=== PATIENT | male | born 1945 | race Caucasian/White ===

== ENCOUNTER 2020-10-27 18:11 | Emergency (ER) | payer OTHER, MEDICARE, SELFPAY ==
[2020-10-27 18:33] VITALS: BP 125/90; PULSE 64; RESP 18; TEMP 36.8; O2SAT 95; BMI 31.2
[2020-10-27] MEDS: Tetracaine HCl/PF 0.5% Oph Sol 4 ML DROPS 1 DROP EYE-BOTH (18:42)
[2020-10-27] MEDS: Fluorescein Sodium STRIP 1 STRIP EYE-BOTH (18:42)
--- NOTE | 2020-10-27 19:14 | ED.EYEPROB ---
HPI - Eye Problem General Chief complaint: Eye Problems Stated complaint: SOMETHING IN EYE Time Seen by Provider: 10/27/20 18:38 Source: patient Mode of arrival: ambulatory Limitations: no limitations History of Present Illness HPI Narrative: Patient tells me yesterday he was mowing his lawn. He had sunglasses on but felt something fly up into his eye. Since then he has had some irritation and redness to the left eye. He is concerned they may be a foreign body in his eye. No vision changes. Related Data Allergies Allergy/AdvReac Type Severity Reaction Status Date / Time Sulfa (Sulfonamide Allergy Unknown UNKNOWN Unverified 12/08/19 15:33 Antibiotics) Review of Systems Review of Systems: Yes all other systems are reviewed and are negative Constitutional: Constitutional: Reports no additional constitutional complaints, Denies body ache(s), Denies chills, Denies fever(s), Denies headache(s) and Denies weakness Eyes: Eyes: Reports no additional eye complaints, Denies change in vision, Denies eye discharge, Reports irritation, Denies eye pain and Denies photophobia Comments: Redness ENT: Reports system reviewed and no additional complaints, except as documented, Denies dizziness, Denies headache(s), Denies nasal congestion, Denies nasal discharge and Denies neck pain Cardiovascular: Cardiovascular: Reports no additional cardiovascular complaints, Denies chest pain, Denies leg edema and Denies dyspnea Respiratory: Respiratory: Reports no additional respiratory complaints, Denies cough and Denies dyspnea Gastrointestinal: Gastrointestinal: Reports no additional gastrointestinal complaints, Denies abdominal pain, Denies diarrhea, Denies nausea and Denies vomiting Genitourinary: Genitourinary: Denies urinary incontinence Musculoskeletal: Musculoskeletal: Reports no additional musculoskeletal complaints, Denies back pain, Denies arthralgias, Denies joint swelling, Denies neck pain, Denies numbness and Denies tingling Integumentary/Breasts: Skin/Breast: Reports system reviewed and no additional complaints, except as docu and Denies rash Neurologic: Reports system reviewed and no additional complaints, except as documented, Denies Abnormal speech present, Denies dizziness, Denies headache(s), Denies numbness, Denies tingling and Denies weakness [facility] Past Medical History Attestation statement: The following information was validated with the patient. Source: old records reviewed and nursing notes reviewed Medical History CAD (coronary artery disease) Diabetes HLD (hyperlipidemia) HTN (hypertension) Social History Social History Advance Directives: No Physical Exam Vital Signs: Vital Signs: Last Vital Signs Temp 98.2 F 10/27/20 18:33 Pulse 64 10/27/20 18:33 Resp 18 10/27/20 18:33 BP 125/90 H 10/27/20 18:33 Pulse Ox 95 10/27/20 18:33 Body Mass Index 31.2 Const: General: cooperative, healthy appearing, comfortable and no acute distress Orientation/consciousness: patient oriented x3 Limitations: no limitations HENMT: Head: Yes normal to inspection Ears: hearing grossly normal bilaterally General nose exam: Normal external nose present Face and sinus: Yes normal facial exam Mouth: Normal oral and palatal mucosa present Throat: Yes posterior oropharynx normal Eyes: Other: IOP right 12, left 11 General: appearance normal, both eyes and all related structures Visual Nash: normal visual nash by confrontation Alignment and Position: alignment normal Periorbital: periorbital findings normal Eyelids: Yes eyelids normal and Yes other (To the left upper eyelid there is a small foreign body internally) Conjunctivae: conjunctivae normal Sclerae: sclerae normal Corneas: corneas normal and fluorescein used (No corneal abrasion or foreign body) Pupils: Equal, round and reactive pupils present EOM: EOMs intact bilaterally Direct Ophthalmoscopy: normal light reflex, no photophobia, fundi normal bilaterally, anterior chamber normal and No photophobia Neck: Neck: Yes normal visual inspection Chest: Chest palpation & inspection: normal inspection of the chest Resp: Effort & Inspection: normal respiratory effort Auscultation: clear to auscultation bilaterally Cardio: Rate: regular rate Rhythm: regular rhythm Peripheral pulses: Peripheral pulses 2+ throughout GI: Inspection: Yes normal to inspection Palpation (GI): Soft to palpation and nontender Auscultation: normal bowel sounds Back/Spine/Pelvis: Thoracic/Lumbar Spine: thoracic and lumbar spine normal to inspection Skin: General skin exam: no rashes or lesions noted Neuro: General: patient oriented x3, no focal motor deficits and normal sensation to monofilament Cranial nerves: Yes Equal, round and reactive pupils present Cognition (Neuro): normal cognition Speech: No Abnormal speech present Gait exam (Neuro): Normal gait present Motor exam (neuro): 5/5 motor strength present throughout Extrem: General: Yes normal to inspection Course Course Course Narrative: Foreign body removed from the left upper inner eyelid with a Q-tip and 18 gauge needle. No corneal abrasion or foreign body noted. No visual changes. Reviewed worrisome signs and symptoms of when to return to the emergency department. Comfortable discharge home. MDM - Eye Problem Medical Records Attestation: I reviewed the patient's medical records. Lab Data Attestation: I reviewed the patient's lab results. Discharge Plan Discharge Clinical Impression: Foreign body of eyelid, left Patient Disposition: Home, Self-Care Instructions: Eye Foreign Body (ED) Referrals: Timothy Cloud MD [Primary Care Provider] - 2 days Interventions: ED Discharge Assessment Last Done: 10/27/20 19:15
== END 2020-10-27 19:16 | disposition home or self-care (01) ==
PROVIDERS: Emergency Provider Internal Medicine; PCP Internal Medicine
DX: T15.12XA Foreign body in conjunctival sac, left eye, initial encounter (principal); X58.XXXA Exposure to other specified factors, initial encounter; Y93.H2 Activity, gardening and landscaping; Y92.096 Garden or yard of other non-institutional residence as the place of occurrence of the external cause; Y99.9 Unspecified external cause status
CPT/HCPCS: 65205; 99283

== ENCOUNTER 2022-11-10 15:01 | Outpatient (REF) | payer MEDICARE, SELFPAY ==
[2022-11-10 18:39] LABS: Thyroid Stimulating Hormone 1.35 uIU/mL (0.32-4.0)
[2022-11-10 18:47] LABS: Vitamin B12 1492 pg/mL (200-900)
[2022-11-16 09:49] LABS: Testosterone, Total 152 ng/dL (250-1100)
== END 2022-11-10 15:02 | disposition home or self-care (01) ==
LOC: HO.MANLDS 15:01
PROVIDERS: Visit Provider Internal Medicine
DX: R53.83 Other fatigue (principal)
CPT/HCPCS: 36415; 82306; 82607; 84403; 84443

== ENCOUNTER 2023-01-27 12:03 | Outpatient (REF) | payer MEDICARE, SELFPAY ==
[2023-01-27 13:46] LABS: Estimated Average Glucose 131 mg/dL; Hemoglobin A1c % 6.2 % (<6.0)
[2023-01-31 23:03] LABS: Testosterone, Total 158 ng/dL (250-1100)
== END 2023-01-27 12:04 | disposition home or self-care (01) ==
LOC: HO.MANLDS 12:03
PROVIDERS: Visit Provider Internal Medicine
DX: R89.1 Abnormal level of hormones in specimens from other organs, systems and tissues (principal); E11.9 Type 2 diabetes mellitus without complications
CPT/HCPCS: 36415; 83036; 84403

== ENCOUNTER 2023-06-03 13:59 | Emergency (ER) | payer MEDICARE, SELFPAY ==
--- NOTE | ~2023-06-03 | XR_ITS ---
EXAMINATION: XR CHEST CLINICAL INFORMATION: Pedal edema COMPARISON: Chest x-ray February 10, 2011 TECHNIQUE: 2 views of the chest were obtained. FINDINGS: No pulmonary vascular congestion. Lungs are normally aerated. No pleural effusion. Cardiac and mediastinal contours are normal. The heart size is normal. Multilevel degenerative spondylosis spine. XR/XR chest 2V IMPRESSION: Unremarkable examination.
[2023-06-03 14:39] VITALS: BP 149/84; PULSE 60; RESP 16; TEMP 36.8; O2SAT 93; BMI 31.6
--- NOTE | 2023-06-03 14:43 | ECG_ITS ---
Test Reason : EDEMA Blood Pressure : / mmHG Vent. Rate : 058 BPM Atrial Rate : 058 BPM P-R Int : 224 ms QRS Dur : 136 ms QT Int : 408 ms P-R-T Axes : 008 -19 152 degrees QTc Int : 400 ms Sinus bradycardia with 1st degree A-V block Left bundle branch block Abnormal ECG When compared with ECG of 10-FEB-2011 16:53, Premature ventricular complexes are no longer Present [place] interval has increased Left bundle branch block is now Present Referred By: Paddy Chaney Electronically Signed By:ISAURO KERR MD
--- NOTE | 2023-06-03 14:45 | ED_ITS ---
HPI - Extremity Problem General Chief complaint: Extremity Injury, Upper Stated complaint: Swollen R Elbow No Injury Time Seen by Provider: 06/03/23 16:02 Source: patient and family (patient's ) Mode of arrival: ambulatory Limitations: no limitations History of Present Illness HPI Narrative: Patient is a 78 year old assigned male at with a history of CAD, DM, and HTN presenting to the emergency department today with bruising of the right elbow. Patient states that his and son noticed bruising to his right elbow and recommended he come in to the hospital. Patient states that his legs also seem to be swollen sometimes. Patient denies any dizziness, lightheadedness, abdominal pain, nausea, vomiting, fever, chills, blurry vision, double vision, loss of vision, chest pain, difficulty breathing, shortness of breath, back pain, night sweats, pain with urination, increased urinary frequency, increased urinary urgency, blood in his urine or stool, syncope or a near syncopal episode, recent trauma or falls, bowel incontinence, bladder incontinence, bowel retention, bladder retention, or any other complaints at this time. Related Data Allergies Allergy/AdvReac Type Severity Reaction Status Date / Time Sulfa (Sulfonamide Allergy Unknown UNKNOWN Unverified 12/08/19 15:33 Antibiotics) Review of Systems 2 Constitutional: Constitutional: Reports no additional constitutional complaints, Denies chills, Denies fever(s) and Denies night sweats Eyes: Eyes: Reports no additional eye complaints, Denies blurry vision, Denies change in vision, Denies diplopia, Denies eye discharge, Denies loss of vision and Denies eye pain ENT: Denies dizziness Cardiovascular: Cardiovascular: Reports no additional cardiovascular complaints, Denies chest pain, Reports leg edema, Denies lightheadedness, Denies Loss of Consciousness and Denies dyspnea Respiratory: Respiratory: Reports no additional respiratory complaints and Denies dyspnea Gastrointestinal: Gastrointestinal: Reports no additional gastrointestinal complaints, Denies abdominal pain, Denies melena, Denies hematochezia, Denies change in bowel habits and Denies change in stool character Genitourinary: Genitourinary: Reports no additional male genitourinary complaints, Denies hematuria, Denies oliguria, Denies difficulty urinating, Denies dysuria, Denies urinary frequency, Denies urinary hesitancy, Denies urinary incontinence and Denies urinary urgency Musculoskeletal: Musculoskeletal: Reports no additional musculoskeletal complaints, Denies numbness and Denies tingling Comments: bruising to the right elbow Neurologic: Denies dizziness, Denies loss of vision, Denies numbness and Denies tingling Psychiatric: Psychiatric: Reports no additional psychiatric complaints Endocrine: Endocrine: Reports no additional endocrine complaints Hematologic/Lymphatic: Hematologic/Lymphatic: Reports no additional hematologic/lymphatic complaints Allergic/Immunologic: Allergic/Immunologic: Reports no additional allergic/immunologic complaints [facility] Past Medical History Attestation statement: The following information was validated with the patient. (all information validated with the patient's ) Source: old records reviewed, obtained from family (patient's provided additional history and confirmed the history provided by the patient) and nursing notes reviewed Medical History Diabetes CAD (coronary artery disease) HLD (hyperlipidemia) HTN (hypertension) Social History Social History Advance Directives: No Advance Directives Information Provided: Yes Physical Exam 2 Vital Signs: Vital Signs: Last Vital Signs Temp 98.2 F 06/03/23 14:39 Pulse 60 06/03/23 14:39 Resp 16 06/03/23 14:39 BP 149/84 H 06/03/23 14:39 Pulse Ox 93 06/03/23 14:39 O2 Del Method Room Air 06/03/23 14:39 BMI result Body Mass Index 31.6 Const: General: cooperative, no acute distress, alert and awake Nutritional Appearance: well nourished Orientation/consciousness: patient oriented x3 Limitations: no limitations HEENT: Head: Yes normal to inspection and Yes atraumatic Ears: hearing grossly normal bilaterally and external ears normal General nose exam: Normal external nose present, no nasal discharge noted and no epistaxis Face and sinus: Yes normal facial exam, No abrasion and No laceration Mouth: Normal oral and palatal mucosa present, no drooling and no muffled voice Eyes: General: appearance normal, both eyes and all related structures P eriorbital: periorbital findings normal Eyelids: Yes eyelids normal C onjunctivae: conjunctivae normal Pupils: Equal, round and reactive pupils present EOM: EOMs intact bilaterally Neck: Neck: Yes normal visual inspection, Yes full ROM and Yes no lymphadenopathy Chest: Chest palpation & inspection: normal inspection of the chest Resp: Effort & Inspection: normal respiratory effort and able to speak in complete sentences GI: Inspection: Yes normal to inspection Neuro: General: patient oriented x3 and moves all extremities Cranial nerves: Yes Equal, round and reactive pupils present Cognition (Neuro): n ormal cognition Motor exam (neuro): 5/5 motor strength present throughout Sensory Exam: Normal double simultaneous stimulation for sensation C oordination: [id number] test normal Extrem: Other: minimal bruising present to the right elbow General: Yes full ROM and Yes capillary refill normal Psych: Appearance: grossly normal Mental Status: mental status grossly normal Affect: normal affect Attitude: cooperative Thought process: N ormal thought process present Thought content: Normal thought content present Insight: Good insight present (Psych) Course Course Course Narrative: Patient with 2 complaints First complaint is some redness and minor swelling in the olecranon area of the elbow which has full range of motion in his painless Second complaint is pedal edema in both legs, he also has a cough worse at night for many weeks, no chest pain, O2 sat noted to be 93 in triage Labs EKG and x-ray are ordered This is rapid medical exam done in triage pending full evaluation and dispo by ER provider Medical Decision Making Medical Decision Making MDM Narrative: Patient is a 78 year old assigned male at with a history of CAD, DM, and HTN presenting to the emergency department today with a bruise to the right elbow and lower leg swelling. Patient's physical exam showed a contusion of the right elbow but was otherwise unremarkable. Patient's blood work was unremarkable. Patient's EKG was unremarkable. Patient's chest x-ray showed no acute process. I explained my physical exam findings as well as all test results to the patient and the patient's . I answered all questions asked by the patient and the patient's . I stressed the importance of the patient taking his medication as prescribed. I stressed the importance of the patient following up with his primary care provider. I stressed the importance of the patient returning to the emergency department immediately if his symptoms were to worsen or if he were to develop any dizziness, shortness of breath, difficulty breathing, chest pain, blurry vision, loss of vision, nausea, vomiting, abdominal pain, fever, chills, back pain, or any other complaints. Patient and the patient's verbalized agreement and understanding with this treatment plan and discharge. Differential Diagnosis Differential Diagnoses: The differential diagnosis associated with the presentation includes Right elbow contusion CHF exacerbation Acute CHF Admission/Observation Consideration of admission/observation: Escalation of care including admission/observation considered Patient would have been admitted to the hospital had his work up had any findings where hospital admission was appropriate and his clinical presentation warranted hospital admission. Lab Data MDM Lab Attestation statement: I reviewed the patient's lab results. My interpretation of these studies and their corresponding values is that they are grossly normal. 06/03/23 14:55 06/03/23 14:55 Labs: Lab Results 06/03/23 Range/Units 14:55 WBC 8.2 (4.8-10.8) X10*3/uL RBC 5.31 (4.60-5.80) X10*6/uL Hgb 16.3 (14.0-18.0) g/dl Hct 48.3 (42.0-52.0) % MCV 91.0 (80.0-98.0) fL MCH 30.7 (27.0-33.0) pg MCHC 33.7 (31.0-36.0) g/dl RDW 13.6 (11.0-16.0) % Plt Count 176 (160-400) X10*3/uL MPV 11.4 (9.4-12.4) fL Immature Gran % (Auto) 0.2 (0.0-0.4) % Neut % (Auto) 69.0 (45-73) % Lymph % (Auto) 16.3 L (20-40) % [place] % (Auto) 9.6 (2-11) % Eos % (Auto) 4.4 H (0-4) % Baso % (Auto) 0.5 (0-2) % Lymph # (Auto) 1.3 (1.2-4.9) X10*3/uL [place] # (Auto) 0.8 (0.1-1.2) X10*3/uL Eos # (Auto) 0.4 (0.0-0.4) X10*3/uL Baso # (Auto) 0.0 (0.0-0.2) X10*3/uL Abs Immat Gran (auto) 0.02 (0.00-0.03) X10*3/uL Absolute Neuts (auto) 5.7 (2.0-8.3) x10*3/uL Absolute Nucleated RBC 0.000 (0.0-0.012) X10*3/uL Nucleated RBC % (auto) 0.0 (0.0-0.2) /100WBC PT 10.8 L (11.1-13.3) SEC INR 0.9 (0.9-1.1) Sodium 141 (135-145) mmol/L Potassium 4.3 (3.3-5.1) mmol/L Chloride 107 (96-108) mmol/L Carbon Dioxide 27 (22-29) mmol/L Anion Gap 11 L (12-20) BUN 19 H (9-16) mg/dL Creatinine 0.84 (0.5-1.4) mg/dL Estim Creat Clear Calc 85.8 Estimated GFR > 60 Random Glucose 90 (60-115) mg/dL Calcium 9.3 (8.4-10.2) mg/dL Total Bilirubin 0.7 (0.0-1.0) mg/dL Direct Bilirubin 0.3 (0.0-0.5) mg/dL AST 21 (5-37) U/L ALT 33 (0-40) U/L Alkaline Phosphatase 74 (39-117) U/L Troponin I High Sens 5.1 (<3.5-35.0) ng/L B-Natriuretic Peptide 28 (<100) pg/mL Total Protein 6.4 L (6.5-8.0) g/dL Albumin 3.9 (3.5-5.0) g/dL Independent Interpretation I performed an independent interpretation of an: EKG and Plain X-Ray Interpretation: My interpretation is in agreement with the radiologist's impression of this imaging study. - EXAMINATION: XR CHEST CLINICAL INFORMATION: Pedal edema COMPARISON: Chest x-ray February 10, 2011 TECHNIQUE: 2 views of the chest were obtained. FINDINGS: No pulmonary vascular congestion. Lungs are normally aerated. No pleural effusion. Cardiac and mediastinal contours are normal. The heart size is normal. Multilevel degenerative spondylosis spine. XR/XR chest 2V IMPRESSION: Unremarkable examination. Dictated By: Dequan Hampton MD Signed By: Electronically signed by Dequan Hampton MD 06/03/23 1517 Vent. Rate: 058 BPM Atrial Rate: 058 BPM P-R Int: 224 ms QRS Dur: 136 ms QT Int: 408 ms P-R-T Axes: 008 -19 152 degrees QTc Int: 400 ms Sinus bradycardia with 1st degree A-V block Left bundle branch block Abnormal ECG When compared with ECG of 10-FEB-2011 16:53, Premature ventricular complexes are no longer Present [place] interval has increased Left bundle branch block is now Present Electronically Signed By:HANK KERR MD Dictated By: Hank Kerr MD Signed By: Electronically signed by Hank Kerr MD 06/04/23 1213 Radiology Impression Discussion of test interpretation with radiology: I have reviewed the radiologist's reading. Independent Historian Clinical information obtained from an independent historian. History obtained from or confirmed by: Spouse (patient's provided additional history and confirmed the history provided by the patient.) Chronic Conditions Patient?s care impacted by: Diabetes and Hypertension Discharge Plan Discharge Clinical Impression: Contusion Patient Disposition: Home, Self-Care Instructions: Contusion in Adults (ED) Additional Instructions: Follow up with your primary care provider. Return to the emergency department immediately if your symptoms worsen or if you develop any dizziness, shortness of breath, difficulty breathing, chest pain, blurry vision, loss of vision, nausea, vomiting, abdominal pain, fever, chills, back pain, or any other complaints. Referrals: Primo Cisneros MD [Primary Care Provider] - Interventions: ED Discharge Assessment Last Done: 06/03/23 16:18 Discharge Date/Time: 06/03/23 16:22 Print Language: Zambian
[2023-06-03 14:59] LABS: MANUAL DIFF FLAG NO
[2023-06-03 15:00] LABS: Basophils Percent Auto 0.5 % (0-2); Eosinophils Absolute Auto 0.4 X10*3/uL (0.0-0.4); Eosinophils Percent Auto 4.4 % (0-4); Hematocrit 48.3 % (42.0-52.0); Hemoglobin 16.3 g/dl (14.0-18.0); Imm Gran Abs Auto 0.02 X10*3/uL (0.00-0.03); Imm Gran Pct Auto 0.2 % (0.0-0.4); Lymphocytes Absolute Auto 1.3 X10*3/uL (1.2-4.9); Lymphocytes Percent Auto 16.3 % (20-40); Mean Corpuscular HGB Conc 33.7 g/dl (31.0-36.0); Mean Corpuscular Hemoglobin 30.7 pg (27.0-33.0); Mean Platelet Volume 11.4 fL (9.4-12.4); Monocytes Absolute Auto 0.8 X10*3/uL (0.1-1.2); Monocytes Percent Auto 9.6 % (2-11); Neutrophils Absolute Auto 5.7 x10*3/uL (2.0-8.3); Platelet Count 176 X10*3/uL (160-400); Red Blood Count 5.31 X10*6/uL (4.60-5.80); Red Cell Distribution Width 13.6 % (11.0-16.0); White Blood Count 8.2 X10*3/uL (4.8-10.8)
[2023-06-03 15:06] LABS: INTERNATIONAL NORM RATIO 0.9 (0.9-1.1); Prothrombin Time 10.8 SEC (11.1-13.3)
[2023-06-03 15:17] LABS: Alanine Aminotransferase 33 U/L (0-40); Albumin Level 3.9 g/dL (3.5-5.0); Alkaline Phosphatase 74 U/L (39-117); Anion Gap 11 (12-20); Aspartate Amino Transferase 21 U/L (5-37); Bilirubin Direct 0.3 mg/dL (0.0-0.5); Bilirubin Total 0.7 mg/dL (0.0-1.0); Blood Urea Nitrogen 19 mg/dL (9-16); Calcium 9.3 mg/dL (8.4-10.2); Carbon Dioxide 27 mmol/L (22-29); Chloride 107 mmol/L (96-108); Creatinine Clr Calc Pharmacy 85.8; Estimated Glomerular Filt Rate > 60; Glucose Random 90 mg/dL (60-115); Potassium 4.3 mmol/L (3.3-5.1); Sodium 141 mmol/L (135-145); Total Protein 6.4 g/dL (6.5-8.0)
[2023-06-03 15:21] LABS: Troponin-I High Sensitivity 5.1 ng/L (<3.5-35.0)
[2023-06-03 15:22] LABS: B Type Natriuretic Peptide 28 pg/mL (<100)
== END 2023-06-03 16:22 | disposition home or self-care (01) ==
LOC: HO.ED 16:20
PROVIDERS: Physician Assistant Medical; Emergency Provider Emergency Medicine Emergency Medical Services; PCP Internal Medicine
DX: S50.01XA Contusion of right elbow, initial encounter (principal); I25.10 Atherosclerotic heart disease of native coronary artery without angina pectoris; R60.0 Localized edema; R00.1 Bradycardia, unspecified; I44.7 Left bundle-branch block, unspecified; R06.02 Shortness of breath; I10 Essential (primary) hypertension; X58.XXXA Exposure to other specified factors, initial encounter; Y93.9 Activity, unspecified; Y92.9 Unspecified place or not applicable; Y99.8 Other external cause status; Z79.899 Other long term (current) drug therapy
CPT/HCPCS: 36415; 71046; 80048; 80076; 83880; 84484; 85025; 85610; 93005; 99283

== ENCOUNTER → 2023-06-03 14:43 | Outpatient (BNV) | payer MEDICARE, SELFPAY | PROVIDERS: Emergency Provider Emergency Medicine Emergency Medical Services; PCP Internal Medicine; Visit Provider Internal Medicine Cardiovascular Disease | DX: R60.0 Localized edema (principal) | CPT/HCPCS: 93010 ==

== ENCOUNTER 2023-10-05 11:37 | Outpatient (REF) | payer MEDICARE, SELFPAY ==
[2023-10-05 13:03] LABS: MANUAL DIFF FLAG NO
[2023-10-05 13:25] LABS: Basophils Absolute Auto 0.1 X10*3/uL (0.0-0.2); Basophils Percent Auto 0.8 % (0-2); Eosinophils Absolute Auto 0.3 X10*3/uL (0.0-0.4); Eosinophils Percent Auto 4.6 % (0-4); Hematocrit 50.4 % (42.0-52.0); Hemoglobin 16.3 g/dl (14.0-18.0); Imm Gran Abs Auto 0.02 X10*3/uL (0.00-0.03); Imm Gran Pct Auto 0.3 % (0.0-0.4); Lymphocytes Absolute Auto 0.9 X10*3/uL (1.2-4.9); Lymphocytes Percent Auto 13.8 % (20-40); Mean Corpuscular HGB Conc 32.3 g/dl (31.0-36.0); Mean Corpuscular Hemoglobin 30.5 pg (27.0-33.0); Mean Corpuscular Volume 94.2 fL (80.0-98.0); Mean Platelet Volume 12.3 fL (9.4-12.4); Monocytes Absolute Auto 0.6 X10*3/uL (0.1-1.2); Monocytes Percent Auto 8.6 % (2-11); Neutrophils Absolute Auto 4.7 x10*3/uL (2.0-8.3); Neutrophils Percent Auto 71.9 % (45-73); Platelet Count 169 X10*3/uL (160-400); Red Blood Count 5.35 X10*6/uL (4.60-5.80); Red Cell Distribution Width 13.9 % (11.0-16.0); White Blood Count 6.5 X10*3/uL (4.8-10.8)
[2023-10-05 13:35] LABS: Estimated Average Glucose 148 mg/dL; Hemoglobin A1c % 6.8 % (<6.0)
[2023-10-05 13:57] LABS: Alanine Aminotransferase 39 U/L (0-40); Albumin Level 3.9 g/dL (3.5-5.0); Alkaline Phosphatase 65 U/L (39-117); Anion Gap 14 (12-20); Aspartate Amino Transferase 25 U/L (5-37); Bilirubin Total 0.8 mg/dL (0.0-1.0); Blood Urea Nitrogen 20 mg/dL (9-16); Calcium 9.1 mg/dL (8.4-10.2); Carbon Dioxide 27 mmol/L (22-29); Chloride 105 mmol/L (96-108); Estimated Glomerular Filt Rate > 60; Glucose Random 198 mg/dL (60-115); Sodium 142 mmol/L (135-145); Total Protein 6.3 g/dL (6.5-8.0)
[2023-10-05 14:16] LABS: Vitamin D 25-OH Total 55.5 ng/mL (>30)
[2023-10-05 14:23] LABS: Folate 15.7 ng/mL (> or = 4.0); Vitamin B12 556 pg/mL (200-900)
[2023-10-08 22:13] LABS: NT-proBNP 64 pg/mL (<450)
== END 2023-10-05 11:38 | disposition home or self-care (01) ==
LOC: HO.MANLDS 11:37
PROVIDERS: Visit Provider Internal Medicine
DX: E55.9 Vitamin D deficiency, unspecified (principal); E53.8 Deficiency of other specified B group vitamins; I10 Essential (primary) hypertension; E11.9 Type 2 diabetes mellitus without complications; I50.9 Heart failure, unspecified
CPT/HCPCS: 36415; 80053; 82306; 82607; 82746; 83036; 83880; 85025

== ENCOUNTER 2024-01-05 10:13 | Outpatient (AMB) | payer OTHER, MEDICARE, SELFPAY ==
--- NOTE | 2024-01-05 10:25 | A.OFFVIS_ITS ---
Vital Signs 01/05/24 10:26 Height 5 ft 10 in Weight 224 lb BMI 32.1 BP 118/62 Blood Pressure Location Rt brachial Position Sitting Pulse 79 Pulse Source Doppler Pulse Oximetry (%) 94 Oxygen Delivery Method Room Air Intake Visit Reasons: copd Allergies Sulfa (Sulfonamide Antibiotics) Allergy (Unknown, Verified 01/05/24 10:30) UNKNOWN HPI HPI copd: Details: 78-year-old gentleman, former 30+ pack-year smoker, with underlying history of pulmonary emphysema, asthma, and environmental allergies referred for pulmonary follow-up. Patient previously seen Dr. Chairez in [place], who has since retired. Patient denies any recent exacerbations. He states that he has been using Wixela, albuterol MDI, Kiya, and Mucinex D with reasonable control of his symptoms. Patient does have family history of emphysema. He also has a dog as a pet. 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 FORMERLY [facility], [facility] Medical History Diabetes CAD (coronary artery disease) HLD (hyperlipidemia) HTN (hypertension) Social History (Updated 01/05/24 @ 10:36 by Ling Kincaid [facility]) Patient Tobacco Use Status: Never used Tobacco Review of Systems Const Denies daytime sleepiness, Denies excessive sweating, Denies fatigue, Denies fever(s), Denies lethargy, Denies malaise, Denies night sweats, Denies snoring and Denies weight loss Eyes Denies blurry vision and Denies itchy eyes ENT Denies nasal congestion, Denies post nasal drip, Denies sinus pain, Denies sinus pressure and Denies other ( Thrush) Card Denies chest pain, Denies pedal edema, Denies dyspnea, Denies orthopnea and Denies paroxysmal nocturnal dyspnea Resp Denies cough, Denies hemoptysis, Denies excessive phlegm production, Denies dyspnea, Denies snoring and Denies wheezing GI Denies abdominal pain and Denies heartburn Musc Denies myalgias, Denies arthralgias and Denies joint swelling Skin/Breast Denies rash Neuro Denies memory loss and Denies seizure-like activity Psych Denies abnormal sleep pattern, Denies anxiety and Denies memory loss Endo Denies excessive sweating, Denies fatigue and Denies heat intolerance Michael/Lymph Denies easy bruising Aller/Immun Denies itchy eyes, Denies seasonal rhinorrhea and Denies wheezing Physical Exam Vital Signs: Last Vital Signs Pulse 79 01/05/24 10:26 BP 118/62 01/05/24 10:26 Pulse Ox 94 01/05/24 10:26 Oxygen Delivery Method Room Air 01/05/24 10:26 BMI result Body Mass Index 32.1 Const General: no acute distress and alert Nutritional Appearance: obese Orientation/consciousness: Other orientation findings ( oriented) HEENT Head: Yes atraumatic Eyes General: appearance normal, both eyes and all related structures Sclerae: sclerae normal EOM: EOMs intact bilaterally Neck Neck: Yes supple Lymphatic: no lymphadenopathy noted Resp Effort & Inspection: normal respiratory effort and no use of accessory muscles Auscultation: clear to auscultation bilaterally Cardio Rate: regular rate Rhythm: regular rhythm Heart sounds: no gallops, no murmurs and no rubs Skin General skin exam: other ( warm) Extrem General: No clubbing, No cyanosis and No edema Assessment & Plan Assessment & Plan (1) Asthma-COPD overlap syndrome: Code(s): J44.89 - Other specified chronic obstructive pulmonary disease Category: Medical Plan: Likely underlying asthma/COPD overlap syndrome of unclear severity. Will obtain full PFT. Will continue on current regimen of Wixela 100 and albuterol MDI. (2) Environmental allergies: Code(s): Z91.09 - Other allergy status, other than to drugs and biological substances Category: Medical Plan: Underlying environmental allergy suboptimally controlled loratadine. Will start on Singulair. Will obtain RAST panel, IgE level, and CBC with differential for further evaluation. Orders: Orders PFT pulmonary function test Today J44.89 - Other specified chronic obstructive pulmonary disease Resp Allergy Profile Region I Today Z91.09 - Other allergy status, other than to drugs and biological substances Complete Blood Count Auto Diff Today Z91.09 - Other allergy status, other than to drugs and biological substances Medications: New montelukast (Singulair) 10 mg PO DAILY 30 tabs 6RF Z91.09 - Other allergy status, other than to drugs and biological substances Coding Level of Care Code New Pt Level 4 (50086) Diagnoses Asthma-COPD overlap syndrome J44.89 Environmental allergies Z91.09
[2024-01-05 10:26] VITALS: BP 118/62; PULSE 79; O2SAT 94; BMI 32.1
== END 2024-01-05 10:52 | disposition home or self-care (01) ==
PROVIDERS: PCP Internal Medicine; Referring Provider Internal Medicine; Visit Provider Internal Medicine Pulmonary Disease
DX: J44.89 Other specified chronic obstructive pulmonary disease (principal); Z91.09 Other allergy status, other than to drugs and biological substances
CPT/HCPCS: 99204

== ENCOUNTER 2024-01-05 10:13 | Outpatient (REF) | payer OTHER, MEDICARE, SELFPAY ==
[2024-01-05 11:16] LABS: MANUAL DIFF FLAG NO
[2024-01-05 11:32] LABS: Basophils Absolute Auto 0.1 X10*3/uL (0.0-0.2); Basophils Percent Auto 0.7 % (0-2); Eosinophils Absolute Auto 0.2 X10*3/uL (0.0-0.4); Eosinophils Percent Auto 3.2 % (0-4); Hematocrit 49.7 % (42.0-52.0); Hemoglobin 16.2 g/dl (14.0-18.0); Imm Gran Abs Auto 0.02 X10*3/uL (0.00-0.03); Imm Gran Pct Auto 0.3 % (0.0-0.4); Lymphocytes Absolute Auto 0.7 X10*3/uL (1.2-4.9); Lymphocytes Percent Auto 10.4 % (20-40); Mean Corpuscular HGB Conc 32.6 g/dl (31.0-36.0); Mean Corpuscular Hemoglobin 30.9 pg (27.0-33.0); Mean Corpuscular Volume 94.7 fL (80.0-98.0); Mean Platelet Volume 11.3 fL (9.4-12.4); Monocytes Absolute Auto 0.7 X10*3/uL (0.1-1.2); Monocytes Percent Auto 10.1 % (2-11); Neutrophils Absolute Auto 5.4 x10*3/uL (2.0-8.3); Neutrophils Percent Auto 75.3 % (45-73); Platelet Count 174 X10*3/uL (160-400); Red Blood Count 5.25 X10*6/uL (4.60-5.80); Red Cell Distribution Width 13.9 % (11.0-16.0); White Blood Count 7.1 X10*3/uL (4.8-10.8)
[2024-01-07 22:14] LABS: Class Alternaria alternata 0; Class Aspergillus fumigatus 0; Class Bermuda Grass 0; Class Birch 0; Class Cat Dander 0; Class Cladosporium herbarum 0; Class Cockroach 0; Class Common Ragweed 0; Class Cottonwood 0; Class Derm. pterony 0; Class Dermatophagoides farinae 0; Class Dog Dander 0; Class Elm 0; Class Maple Box Elder 0; Class Mountain Cedar 0/1; Class Mouse Urine Protein 0; Class Mugwort 0; Class Oak 0; Class Penicillium crysogenum 0; Class Rough Pigweed 0; Class Sheep Sorrel 0; Class Sycamore 0; Class Timothy Grass 0; Class Walnut Tree 0; Class White Ash 0; Class White Mulberry 0; D001 IgE D pteronyssinus <0.10 kU/L; D002 - IgE D farinae <0.10 kU/L; E001 - IgE Cat Dander <0.10 kU/L; E005 - IgE Dog Dander <0.10 kU/L; E072-IgE Mouse Urine <0.10 kU/L; G002 IgE Bermuda Grass <0.10 kU/L; G006 - IgE Timothy Grass <0.10 kU/L; I006-IgE Cockroach, German <0.10 kU/L; Immunoglobulin E 304 kU/L (<OR=114); M001 IgE Penicillium chrysogen <0.10 kU/L; M002 - IgE Cladosporium herbar <0.10 kU/L; M003 - IgE Aspergillus fumigat <0.10 kU/L; M006 - IgE Alternaria alternat <0.10 kU/L; T001 IgE Maple/Box Elder <0.10 kU/L; T003 IgE Common Silver Birch <0.10 kU/L; T006 - IgE Cedar, Mountain 0.13 kU/L; T007 - IgE Oak, White <0.10 kU/L; T008 IgE Elm, American <0.10 kU/L; T010 - IgE Walnut <0.10 kU/L; T011 - IgE Maple Leaf Sycamore <0.10 kU/L; T014 - IgE Cottonwood <0.10 kU/L; T015 - IgE Ash, White <0.10 kU/L; T070 - IgE White Mulberry <0.10 kU/L; W001 - IgE Ragweed, Short <0.10 kU/L; W006 - IgE Mugwort <0.10 kU/L; W014 IgE Pigweed, Common <0.10 kU/L; W018 IgE Sheep Sorrel <0.10 kU/L
== END 2024-01-05 10:14 | disposition home or self-care (01) ==
LOC: HO.LAB 10:13
PROVIDERS: PCP Internal Medicine; Visit Provider Internal Medicine Pulmonary Disease
DX: J44.89 Other specified chronic obstructive pulmonary disease (principal); Z91.09 Other allergy status, other than to drugs and biological substances
CPT/HCPCS: 36415; 82785; 85025; 86003; 99202

== ENCOUNTER 2024-01-16 11:00 | Outpatient (REF) | payer OTHER, SELFPAY ==
[2024-01-16 15:31] VITALS: PULSE 75; RESP 16; O2SAT 93
== END 2024-01-16 11:01 | disposition home or self-care (01) ==
LOC: HO.RESP 11:00
PROVIDERS: PCP Internal Medicine; Visit Provider Internal Medicine Pulmonary Disease
DX: J44.89 Other specified chronic obstructive pulmonary disease (principal)
CPT/HCPCS: 94010; 94640; 94727; 94729

== ENCOUNTER 2024-02-04 13:08 | Outpatient (AMB) | payer OTHER, MEDICARE, SELFPAY ==
--- NOTE | 2024-02-04 13:12 | MHC.OFFVIS ---
Vital Signs 02/04/24 13:13 Height 5 ft 10 in Weight 223 lb 12.307 oz BMI 32.1 BP 114/60 Blood Pressure Location Rt brachial Position Sitting Pulse 69 Pulse Source Doppler Pulse Oximetry (%) 93 Oxygen Delivery Method Room Air Intake Visit Reasons: COPD Allergies Sulfa (Sulfonamide Antibiotics) Allergy (Unknown, Verified 01/05/24 10:30) UNKNOWN HPI HPI COPD: Details: 78-year-old gentleman, former 30+ pack-year smoker, with underlying history of pulmonary emphysema, asthma, and environmental allergies referred for pulmonary follow-up. Patient previously seen Dr. Chairez in [place], who has since retired. Patient denies any recent exacerbations. He states that he has been using Wixela, albuterol MDI, Kiya, and Mucinex D with reasonable control of his symptoms. Patient does have family history of emphysema. He also has a dog as a pet. 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 After the last office visit patient has completed his pulmonary function test shows underlying reactive airway disease. He also has completed his immunologic workup showing mild allergies to [place] trees. He does complain of difficulty swallowing. He denies exacerbations of his underlying asthma. [facility] Medical History Diabetes CAD (coronary artery disease) HLD (hyperlipidemia) HTN (hypertension) Social History (Updated 01/05/24 @ 10:36 by Ling Kincaid [facility]) Patient Tobacco Use Status: Never used Tobacco Review of Systems Const Denies daytime sleepiness, Denies excessive sweating, Denies fatigue, Denies fever(s), Denies lethargy, Denies malaise, Denies night sweats, Denies snoring and Denies weight loss Eyes Denies blurry vision and Denies itchy eyes ENT Denies nasal congestion, Denies post nasal drip, Denies sinus pain, Denies sinus pressure and Denies other ( Thrush) Card Denies chest pain, Denies pedal edema, Denies dyspnea, Denies orthopnea and Denies paroxysmal nocturnal dyspnea Resp Denies cough, Denies hemoptysis, Denies excessive phlegm production, Denies dyspnea, Denies snoring and Denies wheezing GI Denies abdominal pain and Denies heartburn Musc Denies myalgias, Denies arthralgias and Denies joint swelling Skin/Breast Denies rash Neuro Denies memory loss and Denies seizure-like activity Psych Denies abnormal sleep pattern, Denies anxiety and Denies memory loss Endo Denies excessive sweating, Denies fatigue and Denies heat intolerance Michael/Lymph Denies easy bruising Aller/Immun Denies itchy eyes, Denies seasonal rhinorrhea and Denies wheezing Physical Exam Vital Signs: Last Vital Signs Pulse 69 02/04/24 13:13 BP 114/60 02/04/24 13:13 Pulse Ox 93 02/04/24 13:13 Oxygen Delivery Method Room Air 02/04/24 13:13 BMI result Body Mass Index 32.1 Const General: no acute distress and alert Nutritional Appearance: not obese Orientation/consciousness: Other orientation findings ( oriented) HEENT Head: Yes atraumatic Eyes General: appearance normal, both eyes and all related structures Sclerae: sclerae normal EOM: EOMs intact bilaterally Neck Neck: Yes supple Lymphatic: no lymphadenopathy noted Resp Effort & Inspection: normal respiratory effort and no use of accessory muscles Auscultation: clear to auscultation bilaterally Cardio Rate: regular rate Rhythm: regular rhythm Heart sounds: no gallops, no murmurs and no rubs Skin General skin exam: other ( warm) Extrem General: No clubbing, No cyanosis and No edema Assessment & Plan Assessment & Plan (1) Asthma-COPD overlap syndrome: Code(s): J44.89 - Other specified chronic obstructive pulmonary disease Category: Medical Plan: Well controlled on Wixela, Singulair, and albuterol MDI. Continue current regimen. (2) Dysphagia: Code(s): R13.10 - Dysphagia, unspecified Category: Medical Plan: Will obtain modified barium swallow for further evaluation. (3) Environmental allergies: Code(s): Z91.09 - Other allergy status, other than to drugs and biological substances Category: Medical Plan: Well controlled on Singulair and Kiya. Continue current regimen. Orders: Orders FL Modified Barium Swallow Today R13.10 - Dysphagia, unspecified Coding Level of Care Code Est Pt Level 4 (83998) Complex EM visit Add On G2211 Diagnoses Asthma-COPD overlap syndrome J44.89 Dysphagia R13.10 Environmental allergies Z91.09
[2024-02-04 13:13] VITALS: BP 114/60; PULSE 69; O2SAT 93; BMI 32.1
== END 2024-02-04 13:36 | disposition home or self-care (01) ==
PROVIDERS: PCP Internal Medicine; Visit Provider Internal Medicine Pulmonary Disease
DX: J44.89 Other specified chronic obstructive pulmonary disease (principal); R13.10 Dysphagia, unspecified; Z91.09 Other allergy status, other than to drugs and biological substances
CPT/HCPCS: 99214; G2211

== ENCOUNTER → 2024-02-04 13:08 | Outpatient (BNVA) | payer OTHER, MEDICARE, SELFPAY | PROVIDERS: PCP Internal Medicine; Visit Provider Internal Medicine Pulmonary Disease | DX: J43.9 Emphysema, unspecified (principal); R13.10 Dysphagia, unspecified; Z91.09 Other allergy status, other than to drugs and biological substances | CPT/HCPCS: 99212 ==

== ENCOUNTER 2024-02-24 10:11 | Outpatient (REF) | payer OTHER, MEDICARE, SELFPAY ==
--- NOTE | ~2024-02-24 | FL_ITS ---
EXAMINATION: Modified Barium Swallows CLINICAL INFORMATION: Dysphagia COMPARISON: None TECHNIQUE: Modified barium swallow was performed under lateral fluoroscopy with patient in standing position. Barium mixed with solids and liquids of different consistencies was administered by the speech pathologist. Examination was recorded in the fluoroscopy suite. FINDINGS: No laryngeal penetration or aspiration was observed during this examination. 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 FLUOROSCOPY TIME: 47 seconds Number of Spot Images: N/A DOSE AREA PRODUCT: 371.6 uGy-m2 (microgray-meter squared) FL/FL Modified Barium Swallow IMPRESSION: 1. No laryngeal penetration or aspiration was observed during this examination. 2. 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 Refer to the speech therapy report for further clarification This procedure was performed by Blayne Fraga PA-C, and supervised by Dr. Gerard Electronically signed by: Migue Gerard MD 02/24/2024 03:20 PM [facility] [place]
--- NOTE | 2024-02-24 13:51 | MHC.SL.IMP ---
Date of Plan of Treatment: 02/24/24 Onset of Symptoms/Illness: 02/04/24 Date Treatment Started: 02/24/24 Admitting Diagnosis: Dysphagia, unspecified (R13.10) Primary Speech & Language Diagnosis: R13.19 Other Dysphagia Reason for Today's Visit: 56798 Modified Barium Swallow Study Pre-evaluation Dietary Consistencies: Regular Pre-evaluation Liquid Consistency: Thin Pre-evaluation Medication Administration: Whole with Liquid Medical History: Diabetes CAD (coronary artery disease) HLD (hyperlipidemia) HTN (hypertension) Pulmonary emphysema Asthma Environmental allergies Oral Motor Exam Facial Symmetry: Symmetrical Mouth Occlusion: Normal Oral-Facial Teeth Characteristics: Intact/Normal Oral-Facial Lip Pucker Description: Normal Oral-Facial Smile (Lips) Description: Normal Oral-Facial Puff Cheeks Description: Normal Tongue Size: Normal Tongue Frenum Length: Normal Oral Expression Ability: No Impairment Is patient able to manage secretions?: Yes Is patient able to produce volitional cough?: Yes Food and Liquid Trials: Oral Impairment: Lip Closure: 1=Interlabial escape; no progression to anterior tip Oral Impairment: Tongue Control During Bolus Hold: 0=Cohesive bolus between tongue to palatal seal Oral Impairment: Bolus Preparation/Mastication: 0=Timely and efficient chewing and mashing Oral Impairment: Bolus Transport/Lingual Motion: 0=Brisk tongue motion Oral Impairment: Oral Residue: 1=Trace residue lining oral structures Oral Impairment:Initiation of Pharyngeal Swallow: 1=Bolus head in valleculae Pharyngeal Impairment: Soft Palate Elevation: 0=No bolus between soft palate (SP)/pharyngeal wall (PW) Pharyngeal Impairment: Laryngeal Elevation: 0=Complete superior movement of thyroid cartilage (see description) Pharyngeal Impairment: Anterior Hyoid Excursion: 0=Complete anterior movement Pharyngeal Impairment: Epiglottic Movement: 0=Complete inversion Pharyngeal Impairment: Laryngeal Vestibular Closure:: 0=Complete: no air/contrast in laryngeal vestibule Pharyngeal Impairment: Pharyngeal Stripping Wave: 0=Present: complete Pharyngeal Impairment: Pharyngeal Contraction: Did not test Pharyngeal Impairment: Pharyngoesophageal Segment Openin=Minimal distension/minimal duration: marked obstruction of flow Pharyngeal Impairment: Tongue Base (TB) Retraction: 1=Trace column of contrast/air between TB and posterior PW Pharyngeal Impairment: Pharyngeal Residue: 0=Complete pharyngeal clearance Pharyngeal Impairment: Esophageal Clearance Upright Position: Did not test Impressions and Recommendations Clinical Observations: Current (pre-evaluation) Intake/Diet: Pre-Study Functional Oral Intake Scale (FOIS): 7- Total oral intake with no restrictions MBSImP ID: [id number] [facility] Results: Lip closure for intraoral bolus containment resulted in interlabial escape, without progression to the anterior lip. Tongue control during bolus hold maintained a cohesive bolus held between tongue to palate seal. Bolus preparation and mastication resulted in timely and efficient chewing and mashing. Bolus transport/lingual motion was with brisk tongue motion. Oral residue was a trace, lining oral structures. Initiation of the pharyngeal swallow occurred when the bolus head was in the valleculae. Soft palate elevation resulted in no bolus between the soft palate and the pharyngeal wall. Laryngeal elevation demonstrated complete superior movement of the thyroid cartilage with complete approximation of the arytenoids to the epiglottic petiole. Anterior hyoid excursion demonstrated complete anterior movement. Epiglottic movement resulted in complete inversion. Laryngeal vestibular closure was complete, as indicated by no air or contrast within the laryngeal vestibule at the height of the swallow. Pharyngeal stripping wave was present and complete. Pharyngeal contraction could not be determined due to logistical reasons not related to physiologic impairment. Pharyngoesophageal segment opening demonstrated minimal distension/minimal duration, with marked obstruction of bolus flow. Tongue base retraction allowed a trace column of contrast or air between the retracted tongue base and the posterior pharyngeal wall. Pharyngeal residue was not present. There was complete pharyngeal clearance. Esophageal clearance in the upright position could not be assessed due to logistical reasons not related to physiologic impairment. Oral Impairment Score: 1 Pharyngeal Impairment Score: 2 (absence of score, component 13) Esophageal Impairment Score: --- (absence of score, component 17) Laryngeal Penetration and Aspiration: Neither penetration nor aspiration was observed in today's study with Cookie, Pudding-thick, Thin. SUMMARY: Pt demonstrated intact oropharyngeal swallow ability. The attending radiologist noted cricopharyngeal achalasia which may be contributing to his symptoms and recommended an Esophogram to further investigate. PLATFORM MATERIAL HANDLING SUPERVISOR spoke with the Pt about crushing his medication where possible. He has many tablets that cannot be crushed however. PLATFORM MATERIAL HANDLING SUPERVISOR recommended he speak with his pharmacist about possible changes medications that can be crushed. PLATFORM MATERIAL HANDLING SUPERVISOR reviewed the results at the end of our encounter and he verbalized understanding of the recommendations and plan of care. PLAN: Intake Recommendations: Post-Study Functional Oral Intake Scale (FOIS): 7- Total oral intake with no restrictions Liquid Intake Recommendation: Thin Liquid Intake Strategies: Unrestricted Dietary Recommendations: Regular Medication Administration: Crushed with Puree Please contact the pharmacy regarding appropriate crushable or liquid drug formulations that are available whenever modified delivery is recommended. Compensatory Strategies Recommended: Small Bites and Sips Alternate Liquids/Solids Rate of Ingestion Change Supervision during eating and or drinking: None Needed Recommended Treatments: Compens. Strategy Educat. Recommendation for Speech Therapy: NA:Typical Evaluation Text Comment: Speech Therapy not indicated by today's results. Frequency/Duration: N/a Date Range for Service Requested: N/a Timeline to reassess: NA Buggyman Clinician/Clinical Fellow: No Supervisory Statement: N/A Speech Language Pathologist: Gerber Mejias M.A., CCC-PLATFORM MATERIAL HANDLING SUPERVISOR
--- OUTSIDE RECORDS SUMMARY | 2024-03-01 17:28 | XMS_ITS | Data Portability ---
Author Organization [facility] Jose Eduardo [facility], Home Service Address [address] [place] [id number] Assessment Encounter Date Assessment Date Assessment LastModified by Organization Details LastModified Time 08/20/2022 08/20/2022 [id number] [place] [id number] (WIRE FENCE BUILDER) [facility] MUST MEET 2 OUT OF 3 ELEMENTS: PROBLEMS, DATA OR RISK ELEMENT 1: PROBLEMS ADDRESSED 1 OR MORE CHRONIC ILLNESS WITH EXACERBATION OR 2 OR MORE STABLE CHRONIC ILLNESSES OR 1 UNDIAGNOSED NEW PROBLEM OR 1 ACUTE ILLNESS W/SYMPTOMS OR 1 ACUTE COMPLICATED INJURY ELEMENT 2: DATA MUST MEET 1 OF 3 CATEGORIES CATEGORY 1: REVIEW OF PRIOR EXTERNAL NOTES, REVIEW OF RESULTS, ORDERING OF EACH TEST, ASSESSMENT REQUIRING INDEPENDENT HISTORIAN OR CATEGORY 2: INDEPENDENT INTERPRETATION OF TESTS BY ANOTHER PHYSICIAN OR SPECIALIST OR CATEGORY 3: DISCUSSION OF MGT OR TEST INTERPRETATION W/EXTERNAL PHYSICIAN OR SPECIALIST ELEMENT 3: RISK RISK OF COMPLICATIONS AND/OR MORBIDITY OR MORTALITY OF PATIENT MANAGEMENT PROVIDER MUST THOROUGHLY DOCUMENT EACH ELEMENT THAT IS COVERED Not available 08/20/2022 12:50:28 11/10/2022 11/10/2022 [id number] [place] [id number] (WIRE FENCE BUILDER) [facility] MUST MEET 2 OUT OF 3 ELEMENTS: PROBLEMS, DATA OR RISK ELEMENT 1: PROBLEMS ADDRESSED 1 OR MORE CHRONIC ILLNESS WITH EXACERBATION OR 2 OR MORE STABLE CHRONIC ILLNESSES OR 1 UNDIAGNOSED NEW PROBLEM OR 1 ACUTE ILLNESS W/SYMPTOMS OR 1 ACUTE COMPLICATED INJURY ELEMENT 2: DATA MUST MEET 1 OF 3 CATEGORIES CATEGORY 1: REVIEW OF PRIOR EXTERNAL NOTES, REVIEW OF RESULTS, ORDERING OF EACH TEST, ASSESSMENT REQUIRING INDEPENDENT HISTORIAN OR CATEGORY 2: INDEPENDENT INTERPRETATION OF TESTS BY ANOTHER PHYSICIAN OR SPECIALIST OR CATEGORY 3: DISCUSSION OF MGT OR TEST INTERPRETATION W/EXTERNAL PHYSICIAN OR SPECIALIST ELEMENT 3: RISK RISK OF COMPLICATIONS AND/OR MORBIDITY OR MORTALITY OF PATIENT MANAGEMENT PROVIDER MUST THOROUGHLY DOCUMENT EACH ELEMENT THAT IS COVERED Not available 11/10/2022 12:12:10 02/23/2023 02/23/2023 [id number] [place] [id number] (WIRE FENCE BUILDER) [facility] MUST MEET 2 OUT OF 3 ELEMENTS: PROBLEMS, DATA OR RISK ELEMENT 1: PROBLEMS ADDRESSED 1 OR MORE CHRONIC ILLNESS WITH EXACERBATION OR 2 OR MORE STABLE CHRONIC ILLNESSES OR 1 UNDIAGNOSED NEW PROBLEM OR 1 ACUTE ILLNESS W/SYMPTOMS OR 1 ACUTE COMPLICATED INJURY ELEMENT 2: DATA MUST MEET 1 OF 3 CATEGORIES CATEGORY 1: REVIEW OF PRIOR EXTERNAL NOTES, REVIEW OF RESULTS, ORDERING OF EACH TEST, ASSESSMENT REQUIRING INDEPENDENT HISTORIAN OR CATEGORY 2: INDEPENDENT INTERPRETATION OF TESTS BY ANOTHER PHYSICIAN OR SPECIALIST OR CATEGORY 3: DISCUSSION OF MGT OR TEST INTERPRETATION W/EXTERNAL PHYSICIAN OR SPECIALIST ELEMENT 3: RISK RISK OF COMPLICATIONS AND/OR MORBIDITY OR MORTALITY OF PATIENT MANAGEMENT PROVIDER MUST THOROUGHLY DOCUMENT EACH ELEMENT THAT IS COVERED Not available 02/23/2023 12:15:58 10/09/2023 10/09/2023 [id number] [place] [id number] (WIRE FENCE BUILDER) [facility] MOD[facility] MUST MEET 2 OUT OF 3 ELEMENTS: PROBLEMS, DATA OR RISK ELEMENT 1: PROBLEMS ADDRESSED 1 OR MORE CHRONIC ILLNESS WITH EXACERBATION OR 2 OR MORE STABLE CHRONIC ILLNESSES OR 1 UNDIAGNOSED NEW PROBLEM OR 1 ACUTE ILLNESS W/SYMPTOMS OR 1 ACUTE COMPLICATED INJURY ELEMENT 2: DATA MUST MEET 1 OF 3 CATEGORIES CATEGORY 1: REVIEW OF PRIOR EXTERNAL NOTES, REVIEW OF RESULTS, ORDERING OF EACH TEST, ASSESSMENT REQUIRING INDEPENDENT HISTORIAN OR CATEGORY 2: INDEPENDENT INTERPRETATION OF TESTS BY ANOTHER PHYSICIAN OR SPECIALIST OR CATEGORY 3: DISCUSSION OF MGT OR TEST INTERPRETATION W/EXTERNAL PHYSICIAN OR SPECIALIST ELEMENT 3: RISK RISK OF COMPLICATIONS AND/OR MORBIDITY OR MORTALITY OF PATIENT MANAGEMENT PROVIDER MUST THOROUGHLY DOCUMENT EACH ELEMENT THAT IS COVERED Not available 10/09/2023 12:07:17 12/25/2023 12/25/2023 [id number] [place] [id number] (WIRE FENCE BUILDER) [facility] MOD[facility] MUST MEET 2 OUT OF 3 ELEMENTS: PROBLEMS, DATA OR RISK ELEMENT 1: PROBLEMS ADDRESSED 1 OR MORE CHRONIC ILLNESS WITH EXACERBATION OR 2 OR MORE STABLE CHRONIC ILLNESSES OR 1 UNDIAGNOSED NEW PROBLEM OR 1 ACUTE ILLNESS W/SYMPTOMS OR 1 ACUTE COMPLICATED INJURY ELEMENT 2: DATA MUST MEET 1 OF 3 CATEGORIES CATEGORY 1: REVIEW OF PRIOR EXTERNAL NOTES, REVIEW OF RESULTS, ORDERING OF EACH TEST, ASSESSMENT REQUIRING INDEPENDENT HISTORIAN OR CATEGORY 2: INDEPENDENT INTERPRETATION OF TESTS BY ANOTHER PHYSICIAN OR SPECIALIST OR CATEGORY 3: DISCUSSION OF MGT OR TEST INTERPRETATION W/EXTERNAL PHYSICIAN OR SPECIALIST ELEMENT 3: RISK RISK OF COMPLICATIONS AND/OR MORBIDITY OR MORTALITY OF PATIENT MANAGEMENT PROVIDER MUST THOROUGHLY DOCUMENT EACH ELEMENT THAT IS COVERED Not available 12/25/2023 14:49:04 Plan of Treatment Reminders Order Date Submit Date Provider Last Modified By Organization Details Last Modified Time Details Appointments FOLLOW UP 15 2024 01:30P M DR VERNON Not available Not available Not available Lab testoster one, total, serum 2022 023 [facility], [address] [place] [address], [address], 11/17/2022 11:08:40 vitamin B12, serum 2022 023 [facility], [address] [place] [address], [address], 11/11/2022 12:04:47 vitamin D, 25-hydrox y, total, serum 2022 023 [facility], [address] [place] [address], [address], 11/11/2022 12:04:47 TSH, serum or plasma 2022 023 [facility], [address] [place] [address], [place], [address], 11/10/2022 12:15:28 HbA1c (hemoglob in A1c), blood 2023 024 [facility], [address] [place] [address], [address], 12/25/2023 14:53:38 Referral None recorded. Procedures None recorded. Surgeries None recorded. Imaging None recorded. Medication Orders Jardiance [address] [facility]/Pharmacy #2024, [address] [place], [address], 08/20/2022 12:51:42 citalopra m 40 mg tablet 2022 023 [email or web address] [address] [place], [address], 09/12/2022 13:35:26 meloxicam 15 mg tablet 2022 024 DIANNE [facility]/Pharmacy #5, [address] [place], [address], 12/25/2023 14:21:00 Advair Diskus 250 mcg-50 mcg/dose powder for inhalatio n 2023 024 Not available 10/09/2023 12:03:25 colchicin e 0.6 mg tablet 2023 024 [email or web address] [facility]/Pharmacy #5, [address] [place], [address], 10/16/2023 10:19:01 Trulicity 1.5 mg/0.5 mL subcutane ous pen injector 2023 024 [facility]/Pharmacy #5, [address] [place], [address], 12/25/2023 14:47:18 Trulicity 3 mg/0.5 mL subcutane ous pen injector 2023 024 [facility] [address] [place], [address], 12/25/2023 14:52:26 Patient TargetsNo targets recorded. Patient Instructions Encounter Date Encounter Id Patient Instructions Last Modified By Organization Details Last Modified Time 08/20/2022 [id number] learning about mood disorders Not available 08/20/2022 12:53:10 11/10/2022 [id number] pulse oximetry* Not available 11/10/2022 12:12:47 02/23/2023 [id number] diabetic foot exam* hrubner Not available 03/02/2023 09:34:36 diabetic eye exam* hrubner Not available 03/02/2023 09:34:36 hand arthritis: exercises Not available 02/23/2023 12:19:15 pulse oximetry* Not available 02/23/2023 12:19:18 10/09/2023 [id number] chronic obstructive pulmonary disease (COPD): care instructions Not available 10/09/2023 12:03:15 gout: care instructions Not available 10/09/2023 11:59:56 learning about type 2 diabetes Not available 10/09/2023 11:59:55 type 2 diabetes: care instructions Not available 10/09/2023 11:59:56 heart failure: care instructions Not available 10/09/2023 11:59:56 learning about heart failure Not available 10/09/2023 11:59:55 12/25/2023 [id number] chronic obstructive pulmonary disease (COPD): care instructions Not available 12/25/2023 14:52:25 pulse oximetry* Not available 12/25/2023 14:52:38 learning about type 2 diabetes Not available 12/25/2023 14:52:25 type 2 diabetes: care instructions Not available 12/25/2023 14:52:25 heart failure: care instructions Not available 12/25/2023 14:52:25 learning about heart failure Not available 12/25/2023 14:52:25 Reason for Referral None Reported. Results Created Date Observation Date Name Description Value Unit Range Abnormal Flag Note LastModifiedBy Organization Detail LastModifiedTime 11/11/1911/10/2022 pulse oxime try* Result 96 Not Available [facility] [address] [place] [address], [phone], 11/07/2022 16:29:30 02/24/20 23 02/23/2023 pulse oxime try* Result 97 Not Available [facility] [address] [place] [address], [phone], 02/20/2023 08:24:08 12/25/19 24 12/25/2023 pulse oxime try* Result 96 Not Available [facility] [address],[place], [address], 12/25/2023 10:49:16 06/03/19 24 06/03/2023 XR, chest , 2 view No observ ation record ed. [facility] (Medical Records) [address] [place], [address], 10/09/2023 11:50:02 08/06/19 24 , echoc ardio gram No observ ation record ed. Not Available 2023 11:50:02 02/24/2002/24/2024 [place], modif ied adrien richards ow study No observ ation record ed. [email or web address] [facility] (Medical Records) [address] [place], [address], 02/24/2024 15:29:29 Result Notes None recorded. Problems Name Problem SNOMED Code Status Onset Date Resolution Date Notes Provider Name and Address Organization Details Recorded Time Congestiv e heart failure 56884147 Active 2022 Primo Vernon, [address],[place], [address], [facility] 3 14:25:58 Type 2 diabetes mellitus 67444392 Active 2022 Primo Vernon [address],[place], [address], [facility] 3 14:26:40 Hypertens fior disorder 99489041 Active 2022 Primo Vernon, [address],[place], [address], [facility] 3 14:26:50 Depressiv e disorder 52319316 Active 2022 Primo Vernon [address],[place], [address], [facility] 3 14:27:02 Benign prostatic hyperplas ia 723233372 Active 2022 Primo BlackburnJanell Vernon, DO [address],[place], [facility], [address], [facility] 3 14:27:34 Gout 99201257 Active 2022 Primo Harkins Blayne, DO [address],[place], [facility] [place], [address], [facility] 3 14:33:35 Carotid artery stenosis 79987495 Active 2022 Primo Torin Vernon, DO [address] [place] [address],[place], [facility], [address], [facility] 3 14:39:33 Gastroeso phageal reflux disease 787792249 Completed 202207/14/2022 Primo Vernon DO [address],[place], [facility] [place], [address], [facility] 3 14:39:56 History of calculus of kidney 059217437 Completed 202207/14/2022 Primo Vernon, DO [address] [place] [address],[place], [facility] [place], [address], [facility] 3 14:40:21 Cobalamin deficienc y 167061164 Active 2022 Primo Vernon, DO [address] [place] [address],[place], [facility] [place], [address], [facility] 3 14:40:40 Vitamin D deficienc y 15886492 Active 2022 Primo Vernon, DO [address],[place], [facility] [place], [address], [facility] 3 14:41:03 Fatigue 02736246 Active 2022 Primo Vernon DO [address] [place] [address],[place], [facility] [place], [address], [facility] 3 12:12:19 Hypotesto steronism 034021126953 4 Active 2022 Primo Vernon, DO [address],[place], [place], [address], [facility] 3 16:28:25 Degenerat fior joint disease of hand 21344458 Active 2022 Primo Vernon, DO [address],[place], [place], [address], [facility] 3 12:17:18 Acute sinusitis 94080253 Active 2022 Primo Vernon, DO [address],[place], [place], [address], [facility] 3 11:43:18 Asthma 645534740 Active 2023 Primo Vernon, DO [address],[place], [place], [address], [facility] 4 11:53:21 Pulmonary emphysema 84296231 Active 2023 Primo Vernon, DO [address],[place], [place], [address], [facility] 4 11:53:34 Herpes labialis 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 Procedures Surgical History None recorded. Imaging Results Imaging Date Name Status LastModified by Organization Details LastModified Time 06/03/2023 XR, chest, 2 view completed [address] (Medical Records) [address] [place], [address], 10/09/2023 11:50:02 08/06/2023 US, echocardiogram completed [facility] Inform ation not available 10/09/2023 11:50:02 02/24/2024 [place], modified barium swallow study completed [email or web address] [facility] (Medical Records) [address] , [place], [address], 02/24/2024 15:29:29 Procedure Notes None recorded. Medical Equipment None Reported. Allergies Allergen ID Allergen Name Allergen Category Reaction Reaction Severity Criticality Documentation Date Start Date Code Code System Note Provider Name and Address Organization Details Recorded Time 6687 Substance with sulfonami de structure and antibacte rial mechanism of action (substanc e) medicatio n Not available Not available Not available 07/14/2022 20958 8003 SNOMED CorinaMILLY [facility] 3 13:54:08 Medications Name Sig Start Date Stop Date Status Note LastModified by Organization Details LastModified Time losartan 50 mg tablet TAKE 1 TABLET BY MOUTH EVERY DAY active Not Available Not Available No t Available amoxicillin 500 mg capsule TAKE 1 CAPSULE BY MOUTH 3 TIMES A DAY 12/24 completed Not Available Not Available Not Available atorvastati n 40 mg tablet TAKE 1 TABLET BY MOUTH EVERY DAY active Not Available Not Available No t Available gabapentin 600 mg tablet TAKE 1 TABLET (600 MG TOTAL) BY MOUTH NIGHTLY AT BEDTIME. active Not Available Not Available No t Available doxycycline hyclate 100 mg capsule TAKE 1 CAPSULE BY MOUTH TWICE A DAY FOR 10 DAYS 12/24 completed Not Available Not Available Not Available citalopram 40 mg tablet TAKE 1 TABLET BY MOUTH EVERY DAY 2023 active Not Available Not Available Not Avai lable azithromyci n 250 mg tablet TAKE 2 TABLETS BY MOUTH TODAY, THEN TAKE 1 TABLET DAILY FOR 4 DAYS DIRECTED 10/08 completed Not Available Not Available Not Available ibuprofen 800 mg tablet TAKE 1 TABLET BY MOUTH EVERY 6 HOURS WITH FOOD NEEDED FOR PAIN active Not Available Not Available No t Available meloxicam 15 mg tablet TAKE 1 TABLET BY MOUTH EVERY DAY NEEDED 12/24 completed Not Available Not Available Not Available valacyclovi r 500 mg tablet TAKE 1 TABLET BY MOUTH TWICE A DAY FOR 7 DAYS active Not Available Not Available No t Available citalopram 20 mg tablet TAKE 1 TABLET BY MOUTH EVERY DAY 08/20 completed Not Available Not Available Not Available amlodipine 10 mg tablet TAKE 1 TABLET BY MOUTH EVERY DAY active Not Available Not Available No t Available Advair Diskus 250 mcg-50 mcg/dose powder for inhalation Inhale 1 puff twice a day by inhalatio n route for 30 days. 2023 active Not Available Not Available Not Avai lable metoprolol tartrate 50 mg tablet 1/4 tablet once a day 12/24 completed Not Available Not Available Not Available oxybutynin chloride ER 5 mg tablet,exte nded release 24 hr TAKE 1 TABLET BY MOUTH EVERY DAY active Not Available Not Available No t Available hydrochloro thiazide 25 mg tablet TAKE 1 TABLET BY MOUTH EVERY DAY IN THE MORNING FOR 90 DAYS active Not Available Not Available No t Available colchicine 0.6 mg tablet TAKE 1 TABLET BY MOUTH TWICE A DAY NEEDED active Not Available Not Available No t Available metformin ER 500 mg tablet,exte nded release 24 hr TAKE 2 TABS BY MOUTH TWICE DAILY WITH MEALS FOR 90 DAYS 08/20 completed Not Available Not Available Not Available finasteride 5 mg tablet TAKE 1 TABLET (5 MG TOTAL) BY MOUTH DAILY. active Not Available Not Available No t Available amoxicillin 875 mg-potassiu m clavulanate 125 mg tablet TAKE 1 TABLET BY MOUTH EVERY 12 HOURS FOR 10 DAYS 10/08 completed Not Available Not Available Not Available Jardiance 25 mg tablet TAKE 1 TABLET BY MOUTH EVERY DAY FOR 30 DAYS active Not Available Not Available No t Available Trulicity 1.5 mg/0.5 mL subcutaneou s pen injector INJECT 1 ML (2 SYRINGES) SUBCUTANE OUSLY ONCE A WEEK 2023 active Not Available Not Available Not Avai lable Trelegy Ellipta 100 mcg-62.5 mcg-25 mcg powder for inhalation INHALE 1 PUFF EVERY DAY BY INHALATIO N ROUTE 10/08 completed Not Available Not Available Not Available Trulicity 3 mg/0.5 mL subcutaneou s pen injector INJECT 0.5 ML SUBCUTANE OUSLY WEEKLY active Not Available Not Available No t Available Sodium Fluoride 5000 Dry Mouth 1.1 % dental paste BRUSH YOUR TEETH 4 TIMES A DAY USING TOOTHPAST E active Not Available Not Available No t Available BinaxNOW COVID-19 Ag Self Test kit TEST DIRECTED TODAY 08/20 completed Not Available Not Available Not Available citalopram 30 mg capsule TAKE 1 CAPSULE BY MOUTH EVERY DAY 08/20 completed Not Available Not Available Not Available Vitals Date Recorded Body height Body mass index (BMI) Body weight Heart rate Oxygen saturation Oxygen saturation in Arterial blood by Pulse oximetry Systolic blood pressure Diastolic blood pressure Provider Name and Address Organization Details Last Updated DateTime 3 177.8 cm 32.7 kg/m2 846194. 34 g 62 /min 94 % 94 % 142 mm[Hg] 72 mm[Hg] Primo Vernon, DO [address] [place], [address] Bisi [facility] 3 12:20:23 Date Recorded Body height Body mass index (BMI) Body weight Oxygen saturation Oxygen saturation in Arterial blood by Pulse oximetry Heart rate Systolic blood pressure Diastolic blood pressure Provider Name and Address Organization Details Last Updated DateTime 3 177.8 cm 32.4 kg/m2 335461. 88 g 96 % 96 % 63 /min 128 mm[Hg] 60 mm[Hg] Corina Hernandez [facility] 3 11:29:38 Date Recorded Body height Body mass index (BMI) Body weight Heart rate Oxygen saturation Oxygen saturation in Arterial blood by Pulse oximetry Systolic blood pressure Diastolic blood pressure Provider Name and Address Organization Details Last Updated DateTime 3 177.8 cm 32.4 kg/m2 552796. 88 g 72 /min 97 % 97 % 146 mm[Hg] 68 mm[Hg] Corina Hernandez [facility] 3 11:45:02 Date Recorded Body height Body mass index (BMI) Body weight Heart rate Oxygen saturation Oxygen saturation in Arterial blood by Pulse oximetry Systolic blood pressure Diastolic blood pressure Provider Name and Address Organization Details Last Updated DateTime 4 177.8 cm 33.2 kg/m2 658554. 35 g 74 /min 96 % 96 % 128 mm[Hg] 78 mm[Hg] Shauna Esquivel [facility] 4 11:32:32 Date Recorded Body height Body mass index (BMI) Body weight Heart rate Oxygen saturation Oxygen saturation in Arterial blood by Pulse oximetry Systolic blood pressure Diastolic blood pressure Provider Name and Address Organization Details Last Updated DateTime 177.8 cm 32.3 kg/m2 471779. 28 g 94 /min 96 % 96 % 100 mm[Hg] 60 mm[Hg] Corina Hernandez [facility] 14:22:19 Social History Question Answer Notes LastModified by Organizat ion Details LastModified Time Tobacco Smoking Status Former Sm[facility] 07/14/2022 13:54:44 What Was The Date Of Your Most Recent Tobacco Screening? 12/25/2023 [email or web address] Information not available 12/25/2023 At What Age Did You Start Smoking Tobacco? 15 [email or web address] Information not available 07/14/2022 How Many Years Have You Smoked Tobacco? 20 [email or web address] Information not available 07/14/2022 Do You Or Have You Ever Used Any Other Forms Of Tobacco Or Nicotine? No [email or web address] Information not available 02/23/2023 Sex: Unknown Functional Status None recorded. Mental Status None recorded. Family History Nothing Reported. Medical History No medical history recorded. Past Encounters Encounter ID Performer Location Encounter Start Date Encounter Closed Date Diagnosis/Indication Diagnosis SNOMED-CT Code Diagnosis ICD10 Code [id number] Primo Vernon [facility] [address] [place] [phone] 07/14/2022 13:46:31 07/14/2022 15:07:58 Congestive heart failure 56171809 I50.9 Type 2 vinny betes mellitus 29453212 E11.9 Hypertensive disorder 38 540895 I10 Depressive disorder 35477 F32.A Benign pro static hyperplasia 898099453 N40.1 Vitamin D deficiency 347 09611 E55.9 Cobalamin deficiency 190 661086 E53.8 [id number] Primo Vernon DO [facility] [address] [place] [id number] 08/20/2022 12:06:07 08/20/2022 13:59:03 Hypertensive disorder 17474268 I10 Congestive heart failure 38020428 I50.9 Type 2 vinny betes mellitus 90513259 E11.9 Hepatitis C screening 41 4371672 Z11.59 Advance care planning 71 6760311 Z71.89 Depressive disorder 3548 9007 F32.A [id number] Primo Vernon [facility] [address] [place] [id number] 11/10/2022 11:20:53 11/10/2022 12:16:23 Congestive heart failure 06227762 I50.9 Hypertensive disorder 38 109794 I10 Type 2 vinny betes mellitus 59745869 E11.9 Fatigue 88023173 R53.83 [id number] Primo BlackburnJanell Vernon [facility] [address] [place] [phone] 02/23/2023 11:28:20 02/23/2023 12:23:53 Congestive heart failure 21392474 I50.9 Type 2 vinny betes mellitus 84854565 E11.9 Hypertensive disorder 38 421959 I10 Hypotestosteronism 48934 36984 104 R89.1 Degenerati ve joint disease of hand 44230925 M19.049 [id number] Primo Vernon [facility] [address] [place] [id number] 10/09/2023 11:21:15 10/09/2023 12:13:21 Depression screening 079746700 Z13.31 Hypertensive disorder 38 523897 I10 Type 2 vinny betes mellitus 50129928 E11.9 Congestive heart failure 72750571 I50.9 Gout 54307093 M10.9 Pulmonary emphysema 8743 3001 J43.9 [id number] Primo BlackburnJanell Vernon [facility] [address] [place] [id number] 12/25/2023 14:15:38 12/25/2023 14:55:23 Hypertensive disorder 36029412 I10 Pulmonary emphysema 8743 3001 J43.9 Type 2 vinny betes mellitus 20499017 E11.9 Vitamin D deficiency 347 30553 E55.9 Congestive heart failure 32883349 I50.9 Health Concerns Section Related Observation LastModified by Organization Detai ls LastModified Time None Recorded Concern Status LastModified by Organization Details LastModified Time None Recorded Advance Directives Directive None Recorded Payers Encounter Date Sequence Insurance Name Policy Number Policy Kinney Covered Member ID Kinney Member ID Guarantor Name 08/20/2022 1 [facility] - MEDICARE PREFERRED (MEDICARE REPLACEMENT HMO) [employer] Jackson Fletcher [id number] Jackson Fletcher 11/10/2022 1 [facility] - MEDICARE PREFERRED (MEDICARE REPLACEMENT HMO) TONJA Fletcher [id number] Jackson Fletcher 02/23/2023 1 [facility] - MEDICARE PREFERRED (MEDICARE REPLACEMENT HMO) TONJA Fletcher [id number] Jackson Fletcher 10/09/2023 1 [facility] - MEDICARE PREFERRED (MEDICARE REPLACEMENT HMO) [employer] Jackson Fletcher [id number] Jackson Fletcher 12/25/2023 1 [facility] MEDICARE PREFERRED (MEDICARE REPLACEMENT HMO) TONJA Fletcher [id number] Jackson Fletcher Notes Date Note Type Note Provider Name and Address Organization Details Recorded Time 3 text/html Diabetes F/UReported bypatient.Labs:last A1C result: 5.7 Context:normal range of home blood sugars (in the low 100s); seeing eye doctor regularly; checking feet regularly Associated Symptoms:no weight gain; no weight loss; no dizziness; no sweats; no headaches; no confusion; no increased thirst; no increased appetite; no increased urination; no blurred vision; no numbness of feet; no calluses on feetHypertension F/UReported bypatient.Medications:ann-marie ing medications as directed; no side effects from medication Lifestyle:regular exercise; limiting/avoiding salt; compliant with low salt diet Associated Symptoms:no dizziness; no lightheadedness; no chest pain; no shortness of breath; no palpitations; no edema; no calf pain with exertion; no headache The patient denies recent falls or recurrent falls. Denies instability, weakness, abnormal gait, or difficulties with movement. The patient wears correct, supportive shoes and is not otherwise severely visually impaired. The patient is full weight bearing and if using the assistance of a cane or walker feels supported and stable with the use of such devices. All medical conditions have been taken into account that may pose a risk for the patient for falls. Home drew, carpets and/or rugs do not pose a challenge for the patient. The patient has been educated about the use of vitamin D supplementation for bone health and prevention of hypotensive episodes that may increase risk for fall. All question and concerns were answered to the patient's satisfaction. here for rechk of his bp and dm Primo Vernon, DO [address] [place], [address], [facility] 08/20/2022 12:53:52 3 text/html Care Management - DiabetesReported bypatient.Self Care:seeing eye doctor yearly for dilated eye exam; checking feet regularly; normal range of home blood sugars (in the low 100s); no side effects from medications Associated Symptoms:symptoms are usually well controlled; no fatigue; no dizziness; no excessive sweating; no headaches; no confusion; no increased thirst; no increased appetite; no increased urination; no blurred vision; no numbness of feet; no calluses on feetCare Management - HypertensionReported bypatient.Self Care:not under emotional stress Severity:symptoms are improving; does not interfere with daily activities Associated Symptoms:no dizziness; no lightheadedness; no chest pain; no shortness of breath; no palpitations; no edema; no calf muscle cramps; no blurred vision; no confusion; no headaches; no fatigueNotes:doing well overall biggest complaint is fatiguehe does 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 and is feeling well no cp no sob unless exertscanada smoke did bother himdoing a bit bettersleeps betterappetite is ok Primo Vernon, DO [address] [facility] [place], [address], [facility] 11/10/2022 12:13:50 3 text/html Care Management - DiabetesReported bypatient.Self Care:seeing eye doctor yearly for dilated eye exam; checking feet regularly; normal range of home blood sugars (in the low 100s); no side effects from medications Associated Symptoms:symptoms are usually well controlled; no fatigue; no dizziness; no excessive sweating; no headaches; no confusion; no increased thirst; no increased appetite; no increased urination; no blurred vision; no numbness of feet; no calluses on feetCare Management - HypertensionReported bypatient.Self Care:not under emotional stress Severity:symptoms are improving; does not interfere with daily activities Associated Symptoms:no dizziness; no lightheadedness; no chest pain; no shortness of breath; no palpitations; no edema; no calf muscle cramps; no blurred vision; no confusion; no headaches; no fatigue here for a rechk and is doing ok overallrelates he has developed mac degen dry in eyes OS >ODtaking areds supno edema no cp no sob able to work around house no issuesarthritis is a prob in his hands kirit on R wakes him up at nighthas a pain in his hands doing well with a1c and dm 6.2testosterone 158 Primo Vernon, DO [address] [facility], [place], [address], [facility] 02/23/2023 12:22:01 4 text/html Care Management - Congestive Heart Failure (CHF)Reported bypatient.Self Care:not under emotional stress; no recent hospitalization Severity:symptoms are improving; does not interfere with daily activities Associated Symptoms:no chest pain; normal heartbeat; no chest tightness; no constant coughing; no blood from coughs; no shortness of breath; no fatigue; no limb swelling; no abdominal swelling; no appetite lossCare Management - DiabetesReported bypatient.Self Care:seeing eye doctor yearly for dilated eye exam; checking feet regularly; normal range of home blood sugars (in the low 100s); no side effects from medications Associated Symptoms:symptoms are usually well controlled; no fatigue; no dizziness; no excessive sweating; no headaches; no confusion; no increased thirst; no increased appetite; no increased urination; no blurred vision; no numbness of feet; no calluses on feetCare Management - HypertensionReported bypatient.Self Care:not under emotional stress Severity:symptoms are improving; does not interfere with daily activities Associated Symptoms:no dizziness; no lightheadedness; no chest pain; no shortness of breath; no palpitations; no edema; no calf muscle cramps; no blurred vision; no confusion; no headaches; no fatigue here for rechk and he is doing fairstates that overall his breathing is the problemwas place back on hctz by cardiol sleeps oknocp no sob unless exerting Primo Vernon, DO [address] [facility],[address], [place], [address], [facility] 10/09/2023 12:09:08 4 text/html Care Management - DiabetesReported bypatient.Self Care:seeing eye doctor yearly for dilated eye exam; checking feet regularly; normal range of home blood sugars (in the low 100s); no side effects from medications Associated Symptoms:symptoms are usually well controlled; no fatigue; no dizziness; no excessive sweating; no headaches; no confusion; no increased thirst; no increased appetite; no increased urination; no blurred vision; no numbness of feet; no calluses on feetCare Management - HypertensionReported bypatient.Self Care:not under emotional stress Severity:symptoms are improving; does not interfere with daily activities Associated Symptoms:no dizziness; no lightheadedness; no chest pain; no shortness of breath; no palpitations; no edema; no calf muscle cramps; no blurred vision; no confusion; no headaches; no fatigue here for rechk and feels wellno gout attacks and glucose is doing well relates that he has mac deg and is getting inj and has noticed a big improve OD went from 20/100 to 20/50 Primo Vernon DO [address] [facility],[address], [place], [address], [facility] 12/25/2023 14:53:23
--- OUTSIDE RECORDS SUMMARY | 2024-03-01 17:28 | XMS_ITS | Continuity of Care Document ---
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 Procedures None recorded. Surgeries None recorded. Imaging None recorded. Medication Orders Trulicity 3 mg/0.5 mL subcutane ous pen injector 2023 024 [id number], [address] [place], [address], 12/25/2023 14:52:26 Patient TargetsNo targets recorded. Patient Instructions Encounter Date Encounter Id Patient Instructions Last Modified By Organization Details Last Modified Time 12/25/2023 [id number] chronic obstructive pulmonary disease (COPD): care instructions [...] Abnormal Flag Note LastModifiedBy Organization Detail LastModifiedTime 12/25/1912/25/2023 pulse oxime try* Result 96 Not Available [facility] [address] [address],[place], [address], 12/25/2023 10:49:16 02/24/2002/24/2024 maki MERCADO study No observ ation record ed. [email or web address] [facility] (Medical Records) [address] [place], [address], 02/24/2024 15:29:29 Result Notes None recorded. Problems Name Problem SNOMED Code Status Onset Date Resolution Date Notes Provider Name and Address Organization Details Recorded Time Congestiv e heart failure 08018133 Active 2022 Primo Vernon DO [address], [place], [address], [facility] 14:25:58 Type 2 diabetes mellitus 87768685 Active 2022 Primo Vernon DO [address], [place], [address], [facility] 3 14:26:40 Hypertens fior disorder 46463047 Active 2022 Primo Vernon, [address],[place], [address], [facility] 3 14:26:50 Depressiv e disorder 93152912 Active 2022 Primo Vernon DO [address],[place], [address], [facility] 3 14:27:02 Benign prostatic hyperplas ia 507377570 Active 2022 Primo Vernon, [facility], [address], [facility] 3 14:27:34 Gout 94575329 Active 2022 Primo Vernon [address],[place], [address], [facility] 3 14:33:35 Carotid artery stenosis 69007457 Active 2022 Primo Vernon [facility], [address], [facility] 3 14:39:33 Gastroeso phageal reflux disease 951477453 Completed 202207/14/2022 Primo eVrnon, [facility], [address], [facility] 3 14:39:56 History of calculus of kidney 369204060 Completed 202207/14/2022 Primo Vernon, [facility], [address], [facility] 3 14:40:21 Cobalamin deficienc y 919838935 Active 2022 Primo Vernon DO [address], [facility] [place] [place], [address], [facility] 3 14:40:40 Vitamin D deficienc y 22421916 Active 2022 Primo Harkins Viktorianelly, DO [address] [address], [facility] [place], [address], [facility] 3 14:41:03 Fatigue 94859658 Active 2022 Primo Vernon DO [address],[facility] [place], [address], [facility] 3 12:12:19 Hypotesto steronism 675239428938 4 Active 2022 Primo Harkins Blayne DO [address],[place], [address], [facility] 3 16:28:25 Degenerat fior joint disease of hand 92840978 Active 2022 Primo Harkins Blayne DO [address],[facility] [place], [address], [facility] 3 12:17:18 Acute sinusitis 68750315 Active 2022 Primo Harkins Blayne DO [address],[place], [address], [facility] 3 11:43:18 Asthma 589635953 Active 2023 Primo BlackburnJanell Vernon DO [address],[place], [address], [facility] 4 11:53:21 Pulmonary emphysema 91620590 Active 2023 Primo BlackburnJanell Vernon DO [address] [address], [facility] [place], [address], [facility] 4 11:53:34 Herpes labialis 7240273 Active 2023 Primo Torin Vernon DO [address],[place], [address], [facility] 4 21:39:13 Problem Notes None recorded. Medical Equipment None Reported. Allergies Allergen ID Allergen Name Allergen Category Reaction Reaction Severity Criticality Documentation Date Start Date Code Code System Note Provider Name and Address Organization Details Recorded Time 6687 Substance with sulfonami de structure and antibacte rial mechanism of action (substanc e) medicatio n Not available Not available Not available 07/14/2022 38093 8003 SNOMED Corina Hernandez [facility] 3 13:54:08 Medications Name Sig [...] Details Last Updated DateTime 4 177.8 cm 32.3 kg/m2 223689. 28 g 94 /min 96 % 96 % 100 mm[Hg] 60 mm[Hg] Corina Porterradha [facility] 14:22:19 Social History Question Answer Notes LastModified by Organizat ion Details LastModified Time Tobacco Smoking Status Former Smoker [facility] 07/14/2022 13:54:44 What Was The Date Of Your Most Recent Tobacco Screening? 12/25/2023 Information not available 12/25/2023 At What Age Did You Start Smoking Tobacco? 15 [email or web address] Information not available 07/14/2022 How Many Years Have You Smoked Tobacco? 20 [email or web address] Information not available 07/14/2022 Do You Or Have You Ever Used Any Other Forms Of Tobacco Or Nicotine? No [email or web address] Information not available 02/23/2023 Sex: Unknown Functional Status None recorded. Mental Status None recorded. Family History Nothing Reported. Medical History No medical history recorded. Past Encounters Encounter ID Performer Location Encounter Start Date Encounter Closed Date Diagnosis/Indication Diagnosis SNOMED-CT Code Diagnosis ICD10 Code [id number] DO [facility] [address] [place] [address] 12/25/2023 14:15:38 12/25/2023 14:55:23 Hypertensive disorder 14722128 I10 Pulmonary emphysema 8743 3001 J43.9 Type 2 vinny betes mellitus 75352606 E11.9 Vitamin D deficiency 347 50690 E55.9 Congestive heart failure 06368360 I50.9 Health Concerns Section Related Observation LastModified by Organization Detai ls LastModified Time None Recorded Concern Status LastModified by Organization Details LastModified Time None Recorded Payers Encounter Date Sequence Insurance Name Policy Number Policy Kinney Covered Member ID Kinney Member ID Guarantor Name 12/25/2023 1 [facility] - MEDICARE PREFERRED (MEDICARE REPLACEMENT HMO) [id number] Jackson Fletcher [id number] Jackson Fletcher Notes Date Note Type Note Provider Name and Address Organization Details Recorded Time 4 text/html Care Management - DiabetesReported bypatient.Self [...] 20/100 to 20/50 Primo Vernon DO [address] [facility] [place], [address], [facility] 12/25/2023 14:53:23
== END 2024-02-24 10:12 | disposition home or self-care (01) ==
LOC: HO.XRAY 10:11
PROVIDERS: PCP Internal Medicine; Visit Provider Internal Medicine Pulmonary Disease
DX: R13.10 Dysphagia, unspecified (principal)
CPT/HCPCS: 74230; 92611

== ENCOUNTER → 2024-02-24 10:30 | Outpatient (BNV) | payer MEDICARE, SELFPAY | PROVIDERS: PCP Internal Medicine; Visit Provider Physician Assistant Surgical | DX: R13.10 Dysphagia, unspecified (principal) | CPT/HCPCS: 74230 ==

== ENCOUNTER 2024-10-27 13:10 | Outpatient (REF) | payer MEDICARE, SELFPAY ==
--- OUTSIDE RECORDS SUMMARY | 2024-03-04 09:00 | XMS_ITS ---
Author Name [facility] [place] [facility] [place] [place] Address [address] [place] [address] Care Team Providers Care Bench Mover Name Role Phone KAIT UNDERWOOD Primary Care Provider Unavailabl e Insurance Providers: All historical and current Section Date Range: From patient's date of to the date document was created. This section includes the names of all active insurance providers for the patient. Insurance Provider Type of Coverage Plan Name Start of Policy Coverage End of Policy Coverage Group Number Member ID Insurance Provider's Telephone Number Policy Kinney's Name Patient's Relationship to Policy Kinney [facility] (WNR) MEDICARE ADVANTAGE [facility] ([facility] Mar 23, 2017 [facility] [id number] PATIENT Selected Encounter This section includes the information on record at [place] for the Encounter. Date/Time Encounter Type Encounter Description Reason Provider Source Mar 04, 2024 01:00 PM MTMS BY PHARM ADDL 15 MIN CLINICAL PHARMACY ICD-10-CM E11.9 Type 2 diabetes mellitus without complications LAKSHMI TINOCO Domenic Encounter Template Text not used by [place] Assessments - Encounter Diagnoses This section includes the primary and secondary diagnoses documented for the Encounter. Date/Time Primary/Secondary Diagnosis Diagnosis Name Provider Source Mar 04, 2024 01:22 PM PRIMARY Type 2 diabetes mellitus without complications LAKSHMI TINOCO [place] [facility] Plan of Treatment: Future Appointments (+ 6 months) and Future Tests (+/- 45 days) The Plan of Treatment section includes future care activities for the [facility] [place] [facility] This section includes future appointments and future orders which are active, pending or scheduled. Future Appointments This section includes appointments that were scheduled to occur 6 months from the date of the Encounter, up to a maximum of 20 appointments. The data comes from all [facility]. Appointment Date/Time Appointment Type Appointme nt Facility Name Mar 18, 2024 01:00 PM AMBULATORY - MEDICINE [facility] Apr 19, 2024 02:30 PM AMBULATORY MEDICINE [facility] May 25, 2024 01:30 PM AMBULATORY MEDICINE [facility] May 26, 2024 02:00 PM AMBULATORY MEDICINE [facility] Jun 23, 2024 08:30 AM AMBULATORY - MEDICINE [facility] July 28, 2024 08:30 AM AMBULATORY - MEDICINE [facility] Sep 01, 2024 11:00 AM AM[facility]UL[facility]ORY MED[facility] Active, Pending, and Scheduled Orders This section includes a listing of several types of active, pending, and scheduled orders, including clinic medications orders, diagnostic test orders, procedure orders and consult orders; where the start date of the order is 45 days before the date of the Encounter or 45 days after the date of theEncounter. The data comes from all [facility]. Test Date/Time Test Type Test Details Facility Name Mar 01, 2024 08:53 AM Consult Order [facility] Cons Assembly Stock Supervisor's Choice [facility] Lab Results: +/- 30 days of the encounter This section includes the Chemistry and Hematology Lab Results on record with [place] for the patient. Radiology Reports and Pathology Reports are provided separately, in subsequent sections. Lab Results This section contains the Chemistry/Hematology Results that were resulted 30 days before or 30 daysafter the date of the Encounter. Date/Time Source Result Type Result - Unit Interpretation Reference Range Specimen Type Comment Feb 05, 2024 10:04 AM [facility] BASIC METABOLIC PANEL (fasting) SERUM Specime n Type: SERUM No comment entered. Ordering Provider: LAKSHMI TINOCO Report Released Date/Time: Feb 03, 2024 04:12 PM Reporting Lab: [facility] [address] [address] Performing Lab: [facility] [address] [address] UREA NITROGEN 22 mg/dL 7-25 GLUCOSE 104 mg/dL H 65-100 SODIUM 140 mmol/L 135-145 POTASSIUM 4.5 mmol/L 3.5-5.0 CHLORIDE 105 mmol/L 100-110 CO2 25 meq/L 20-30 CREATININE, Serum 0.96 mg/dL 0.50-1.40 eGFR(CKD-EPI 2020) 81 mL/min >60 Feb 05, 2024 10:04 AM [facility] MICROALBUMIN CREATININE RATIO PANEL URINE Spe cimen Type: URINE No comment entered. Ordering Provider: LAKSHMI TINOCO Report Released Date/Time: Feb 03, 2024 04:12 PM Reporting Lab: [address] [address] Performing Lab: [address] [address] MICROALBUMIN/CREATININE RATIO canc mg/g 0-29.9 MICROALBUMIN,QUANTITATIVE < 0.5 mg/dL RR UNAVAIL CREATININE URINE 78.73 mg/dL Feb 05, 2024 10:04 AM [facility] HEMOGLOBIN A1C PANEL BLOOD Specimen Type: BLO OD Comment: Values obtained from A1C measurements can vary. For atypical A1C assays, a reported value of 7.0 could actually be between 6.72 and 7.28 if measured by a reference method. A reported value of 9.0 could actually be between 8.73 and 9.27. Ref: http://www.ngsp.org/CAPdata.asp Ordering Provider: LAKSHMI TINOCO Report Released Date/Time: Feb 03, 2024 04:12 PM Reporting Lab: [address] [address] Performing Lab: [address] [address] HEMOGLOBIN A1C 5.3 4.0-5.6 Feb 05, 2024 10:04 AM [facility] LIVER FUNCTION SERUM Specimen Type: SERUM No comment entered. Ordering Provider: LAKSHMI TINOCO Report Released Date/Time: Feb 03, 2024 04:12 PM Reporting Lab: [address] [address] Performing Lab: [address] [address] PROTEIN,TOTAL 5.7 g/dL L 6.0-8.3 ALBUMIN 3.5 g/dL 3.5-5.0 ALKALINE PHOSPHATASE 61 U/L 40-150 AST 28 U/L 5-34 ALT 39 U/L BILIRUBIN, TOTAL 0.5 mg/dL 0.2-1.2 Feb 05, 2024 10:04 AM [facility] CBC BLOOD Specimen Type: BLOOD No comment entered. Ordering Provider: LAKSHMI TINOCO Report Released Date/Time: Feb 03, 2024 04:12 PM Reporting Lab: [address] [address] Performing Lab: [address] [address] WBC 6.75 10*3/uL 4.50-11.00 RBC 5.08 10*6/uL 4.23-5.66 HGB 15.9 g/dL 12.8-17 HCT 47.6 39.2-50.4 MCV 93.7 fL 82-99 MCHC 33.4 g/dL 30.8-35.1 PLT 184 10*3/uL 140-360 RDW-CV 13.8 12.0-16.0 MCH 31.3 pg 26.2-32.6 Social History: Smoking Status (Most current) and Tobacco Use (All prior to encounter date) This section includes the most current, and the historical, smoking and tobacco- related health factors from the [place] facility where the Encounter took place. Current Smoking Status This section includes the most current smoking, or tobacco-related health factor, from the [place] facility where the Encounter took place. Date/Time Current Smoking Status Comment Facil ity Oct 23, 2022 11:30 AM VA-TOBACCO FORMER USER [place] [facility] [place] [facility] Tobacco Use History This section includes a history of the smoking, or tobacco-related health factors, that were collected on or before the date of the Encounter. The data comes from the [place] facility where the Encounter took place. Date/Time Smoking Status/Tobacco Use Comment Kylie yip Oct 23, 2022 11:30 AM VA-TOBACCO QUIT 15 YRS OR MORE [place] [facility] [place] [facility] Sep 26, 2021 01:00 PM VA-TOBACCO FORMER USER [facility] [place] [facility] Sep 26, 2021 01:00 PM VA-TOBACCO QUIT 15 YRS OR MORE [facility] [place] [facility] Feb 07, 2020 11:00 AM VA-TOBACCO FORMER USER [place] [facility] [place] [facility] Feb 07, 2020 11:00 AM VA-TOBACCO QUIT 15 YRS OR MORE [place] [facility] [place] [facility] Jul 06, 2017 02:00 PM VA-TOBACCO FORMER USER [place] [facility] [place] [facility] Jul 06, 2017 02:00 PM VA-TOBACCO QUIT 15 YRS OR MORE [place] [facility] [place] [facility] Jul 06, 2017 01:38 PM QUIT TOBACCO USE > 7 YEARS AGO [facility] [place] [facility] Jun 17, 2016 01:33 PM QUIT TOBACCO USE > 7 YEARS AGO [facility] [place] [facility] Mar 07, 2013 11:07 AM QUIT TOBACCO USE > 7 YEARS AGO [place] [facility] [place] [facility] Encounter Notes: All associated encounter notes This section contains the clinical notes associated to the Encounter. Date/Time Encounter Note(s) Provider Source Apr 12, 2024 01:18 PM ADDENDUM: LOCAL TITLE: Addendum STANDARD TITLE: ADDENDUM DATE OF NOTE: APR 12, 2024@13:18:51 ENTRY DATE: APR 12, 2024@13:18:52 AUTHOR: LAKSHMI TINOCO EXP COSIGNER: URGENCY: STATUS: COMPLETED AMSA, please schedule appointment for: - [facility] PHARM PACT 2 Please schedule for 04/19/24 @[id number] Thank you! /cheli/ ADITIYA TINOCO, PHARMD, BCPS CLINICAL PHARMACIST PRACTITIONER Signed: 04/12/2024 13:19 Receipt Acknowledged By: 04/12/2024 13:58 /es/ NAIF LUONG AMSA --- Original Document --- 03/04/24 PHARMACY CLINIC NOTE: AURE ROA, 78 yo WHITE MALE, presents for slld-dt-flhj follow-up for diabetes management. MAR 04, 2024 Known Allergies: SULFA DRUGS, FLOMAX, CARDURA Subjective: referred to pharmacy clinic for T2DM management. At time of last visit, semaglutide was initiated and insulin glargine-yfgn was empirically reduced. Today pt reports he is doing well. Denies ADRs of N/V/D/C or changes to vision. Pt reports that his fingers are a bit sore. Pt currently SMBG once daily but will test more if needed. Endorses 1 event where pt had s/sx of hypoglycemia (shakey and weak), tested and blood sugar was 77 mg/dl. Pt states that two weeks ago, he lowered insulin glargine-yfgn to 14 units after AM blood sugar of 87 mg/dl. Target Goals: A1C <7.5%; FB-130 mg/dl Personal goals: - Lose Weight - Reduce insulin dose Objective: Diabetes Medication Regimen: Current diabetes medications: - empagliflozin 25 mg once daily - insulin glargine-yfgn 14 units once daily (evening) - semaglutide 1 mg once weekly Previous diabetes medications: - metformin - dulaglutide 3mg once weekly Medication Adherence: denies adherence issues Diet Patterns: patient eats on avg. 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 Other: - Denies personal or fhx thyroid cancer or MENS - Denies hx pancreatitis - Denies hx MH/depression/denies SI - Denies hx of UTI SMBG: Date Range: 02/04/2024 - 03/04/2024 bG values are displayed in mg/dL # of tests 31 Average 100 SD 12 Highest 128 Lowest 73 Avg tests/day 1 # HI 0 # LO 0 <70 0.0% 70-140 100.0% >140 0.0% Hypos(<69) 0 Date Range: 02/04/2024 - 03/04/2024 bG values are displayed in mg/dL 00:00- 05:30- 08:00- 11:00- 12:30- 17:00- 18:30- 21:30- 05:30 08:00 11:00 12:30 17:00 18:30 21:30 00:00 Suzanna 02/04/2024 112 02/06/2024 98 02/07/2024 105 02/08/2024 122 02/09/2024 104 02/10/2024 110 Suzanna 02/11/2024 89 92 02/12/2024 94 02/13/2024 103 02/14/2024 119 02/15/2024 101 02/16/2024 96 02/17/2024 87 Suzanna 02/18/2024 97 02/19/2024 73 02/20/2024 112 02/21/2024 86 Mon 02/22/2024 105 02/23/2024 97 02/24/2024 92 Suzanna 02/25/2024 102 02/26/2024 93 02/27/2024 94 02/28/2024 95 Mon 02/29/2024 98 77 03/01/2024 103 03/02/2024 128 Suzanna 03/03/2024 112 03/04/2024 103 Date Range: 02/04/2024 - 03/04/2024 bG values are displayed in mg/dL 00:00- 05:30- 08:00- 11:00- 12:30- 17:00- 18:30- 21:30- 05:30 08:00 11:00 12:30 17:00 18:30 21:30 00:00 # of tests 0 0 19 7 4 1 0 0 Average 0 0 104 96 94 77 0 0 SD 11 5.6 16.1 0 Hi/Lo 0 0 0 0 0 0 0 0 Date Range: 02/04/2024 - 03/04/2024 bG values are displayed in mg/dL 02/04/2024 9:52 AM 112 02/06/2024 9:53 AM 98 02/07/2024 9:45 AM 105 02/08/2024 8:58 AM 122 02/09/2024 9:30 AM 104 02/10/2024 9:02 AM 110 02/11/2024 9:36 AM 89 4:52 PM 92 02/12/2024 10:14 AM 94 02/13/2024 10:54 AM 103 02/14/2024 10:39 AM 119 02/15/2024 11:03 AM 101 02/16/2024 10:09 AM 96 02/17/2024 8:51 AM 87 02/18/2024 2:09 PM 97 02/19/2024 1:16 PM 73 02/20/2024 12:53 PM 112 02/21/2024 11:14 AM 86 02/22/2024 10:53 AM 105 02/23/2024 12:11 PM 97 02/24/2024 9:36 AM 92 02/25/2024 9:24 AM 102 02/26/2024 11:05 AM 93 02/27/2024 11:41 AM 94 02/28/2024 11:19 AM 95 02/29/2024 10:42 AM 98 5:10 PM 77 03/01/2024 11:07 AM 103 03/02/2024 10:34 AM 128 03/03/2024 9:55 AM 112 03/04/2024 10:49 AM 103 SMBG assessment: FPBG/PPBG at goal. Pt reported s/sx of hypoglycemia when blood sugar was 77 and 73 mg/dl HYPOGLYCEMIC Events: 2 in last 4 weeks - Hypoglycemia recognition & treatment reviewed: Yes (Rule of 15) Allergies/ADR: SULFA DRUGS, FLOMAX, CARDURA Active and Recently Outpatient Medications (including Supplies): Active Outpatient Medications Status 1) ACCU-CHEK GUIDE (GLUCOSE) TEST STRIP USE 1 STRIP TO TEST ACTIVE BLOOD SUGARS THREE TIMES A DAY 2) ALBUTEROL 90MCG (CFC-F) 200D ORAL INHL INHALE 2 PUFFS BY ACTIVE MOUTH EVERY 4 HOURS NEEDED Indication: FOR ASTHMA ATTACK 3) AMLODIPINE BESYLATE 10MG TAB TAKE ONE TABLET BY MOUTH ONCE ACTIVE DAILY FOR BLOOD PRESSURE/HEART, DO NOT TAKE WITH GRAPEFRUIT JUICE Indication: FOR HIGH BLOOD PRESSURE 4) ATORVASTATIN CALCIUM 40MG TAB TAKE ONE TABLET BY MOUTH ONCE ACTIVE DAILY FOR CHOLESTEROL Indication: FOR HIGH CHOLESTEROL 5) EMPAGLIFLOZIN 25MG TAB TAKE ONE TABLET BY MOUTH ONCE DAILY ACTIVE FOR DIABETES NOTE NEW TABLET STRENGTH/DIRECTIONS Indication: FOR TYPE 2 DIABETES MELLITUS 6) FAMOTIDINE 20MG TAB TAKE ONE TABLET BY MOUTH TWICE DAILY FOR ACTIVE (S) STOMACH ACID Indication: FOR GASTROESOPHAGEAL REFLUX DISEASE 7) FEXOFENADINE HCL 60MG TAB TAKE ONE TABLET BY MOUTH TWICE ACTIVE DAILY NEEDED Indication: FOR ALLERGIES 8) FINASTERIDE 5MG TAB TAKE ONE TABLET BY MOUTH ONCE DAILY ACTIVE Indication: FOR ENLARGED PROSTATE 9) FLUTICAS 250/SALMETEROL 50 INHL DISK 60 INHALE 1 PUFF BY ACTIVE (S) MOUTH TWICE DAILY - RINSE MOUTH AFTER USE Indication: FOR CONTROLLER MEDICATION FOR ASTHMA 10) GABAPENTIN 600MG TAB TAKE ONE TABLET BY MOUTH ONCE DAILY ACTIVE (S) 11) INSULIN,GLARGINE-YFGN 100UNIT/ML PEN 3ML INJECT 28 UNITS ACTIVE SUBCUTANEOUSLY ONCE DAILY 12) LANCET,SOFTCLIX USE 1 LANCET TOPICALLY THREE TIMES A DAY TO ACTIVE TEST BLOOD SUGAR 13) LOSARTAN 50MG TAB TAKE ONE TABLET BY MOUTH ONCE DAILY FOR ACTIVE BLOOD PRESSURE/HEART Indication: FOR HIGH BLOOD PRESSURE 14) MONTELUKAST NA 10MG TAB TAKE ONE TABLET BY MOUTH ONCE DAILY ACTIVE FOR ASTHMA 15) NEEDLE,PEN 31G,5MM USE 1 NEEDLE SUBCUTANEOUSLY ONCE DAILY ACTIVE (S) FOR USE WITH INSULIN PENS 16) OXYBUTYNIN CHLORIDE 5MG SA TAB TAKE ONE TABLET BY MOUTH ONCE ACTIVE DAILY FOR BLADDER INSTABILITY Indication: FOR FREQUENT URINATION 17) SEMAGLUTIDE 1MG/0.75ML INJ PEN 3ML INJECT 1MG SUBCUTANEOUSLY ACTIVE ONCE A WEEK Indication: FOR TYPE 2 DIABETES MELLITUS Inactive Outpatient Medications Status 1) ALBUTEROL 90MCG (CFC-F) 200D ORAL INHL INHALE 1 PUFF BY DISCONTINUED MOUTH ONCE DAILY (EDIT) Indication: FOR ASTHMA ATTACK 2) FAMOTIDINE 20MG TAB TAKE ONE TABLET BY MOUTH TWICE DAILY FOR DISCONTINUED STOMACH ACID Indication: FOR GASTROESOPHAGEAL REFLUX DISEASE 3) FEXOFENADINE HCL 60MG TAB TAKE ONE TABLET BY MOUTH TWICE DISCONTINUED DAILY NEEDED Indication: FOR ALLERGIES 4) FLUTICAS 250/SALMETEROL 50 INHL DISK 60 INHALE 1 PUFF BY DISCONTINUED MOUTH TWICE DAILY - RINSE MOUTH AFTER USE Indication: FOR CONTROLLER MEDICATION FOR ASTHMA 5) INSULIN,GLARGINE-YFGN 100UNIT/ML PEN 3ML INJECT 28 UNITS DISCONTINUED SUBCUTANEOUSLY ONCE DAILY 6) MULTIVIT/OPHTH AREDS2/LUTE/ZEAX CAP/TAB TAKE 1 CAPSULE BY MOUTH TWICE DAILY IN THE MORNING AND EVENING, WITH FOOD Active Non-VA Medications Status 1) Non-VA ASPIRIN 81MG EC TAB 81MG BY MOUTH DAILY ACTIVE 2) Non-VA HYDROCHLOROTHIAZIDE 25MG TAB 25MG BY MOUTH EVERY DAY ACTIVE 3) Non-VA MELOXICAM 15MG TAB 7.5MG BY MOUTH ONCE DAILY ACTIVE NEEDED Indication: FOR PAIN 26 Total Medications Labs: CHEM 7 TREND LAB CUMULATIVE SELECTED Collection DT Spec GLUCOSE BUN CREATIN Sodium K+/Pot CL CO2 02/05/2024 10:04 SERUM 104 H 22 0.96 140 4.5 105 25 04/20/2023 10:50 SERUM 121 H 16 1.02 144 4.3 107 28 10/17/2022 13:33 SERUM 124 H 15 0.86 142 4.6 104 29 03/21/2022 14:02 SERUM 141 H 19 0.98 141 5.1 H 105 29 09/26/2021 13:38 SERUM 169 H 23 1.08 141 4.8 106 28 CHEM 7 Results Collection DT Spec Sodium K+/Pot CL CO2 GLUCOSE BUN 02/05/2024 10:04 SERUM 140 4.5 105 25 104 H 22 04/20/2023 10:50 SERUM 144 4.3 107 28 121 H 16 10/17/2022 13:33 SERUM 142 4.6 104 29 124 H 15 03/21/2022 14:02 SERUM 141 5.1 H 105 29 141 H 19 09/26/2021 13:38 SERUM 141 4.8 106 28 169 H 23 07/05/2018 11:02 SERUM 140 4.4 103 29 115 H 24 07/01/2017 14:03 SERUM 141 4.7 103 31 H 149 H 15 06/17/2016 14:05 SERUM 140 4.1 103 32 H 128 H 19 eGFR CKD-EPI 202002/05/24 10:04 81 SERUM LIVER PANEL TREND Collection DT Spec AST ALT T BILI ALK LAINEY T. PROT ALBUMIN 02/05/2024 10:04 SERUM 28 39 0.5 61 5.7 L 3.5 04/20/2023 10:50 SERUM 23 34 0.7 66 6.3 3.7 10/17/2022 13:33 SERUM 17 25 0.6 67 6.2 3.7 03/21/2022 14:02 SERUM 16 21 0.8 62 6.3 3.5 09/26/2021 13:38 SERUM 27 35 0.8 62 6.1 3.5 HEMOGLOBIN A1C TREND Collection DT Spec HGBA1c 02/05/2024 10:04 BLOOD 5.3 04/20/2023 10:50 BLOOD 6.0 H 10/17/2022 13:33 BLOOD 5.8 H 03/21/2022 14:02 BLOOD 6.3 H 09/26/2021 13:38 BLOOD 6.7 H LIPID PANEL TREND Collection DT Spec CHOL HDL CHO/HDL LDL-c TRIG 04/20/2023 10:50 SERUM 100 42 2.4 46 61 10/17/2022 13:33 SERUM 180 40 4.5 115 124 03/21/2022 14:02 SERUM 100 36 L 2.8 49 75 09/26/2021 13:38 SERUM 92 35 L 2.6 37 100 07/05/2018 11:02 SERUM 142 46 3.1 77 96 Vitals: Ht: 68 in [172.7 cm] (04/22/2023 10:50) Wt: 226 lb [102.51 kg] (04/22/2023 10:50) BMI: BMI: 34.4 BP: 130/80 (04/22/2023 11:21) HR: 67 (04/22/2023 10:50) Assessment: DIABETES: Goal: A1c goal is <7.5% with a goal fasting BG average of 80-130mg/dL and a goal post-prandial BG average of <180mg/dL per ADA guideline. Goal adjusted based on age and CAD history. Currently at goal with A1C 5.3% 02/05/24. Despite empiric reduction from 28 units to 18 units of insulin glargine-yfgn, pt reported two hypoglycemia events. Pt self adjusted insulin to 14 units daily. Will further reduce at this time given current A1C. Pt requesting CGM, has experience with them in the past. Reports soreness in fingers from frequent testing. Agree it would be useful to identify patterns as we lower and eventually discontinue insulin. Name of apps given to pt to download. He will use [email or web address] as reader. CARDIOVASCULAR: For patients 60 years and over with Diabetes, recommend a goal of <140/90, with added benefit of reducing SBP closer to 130. 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 - Medications reconciled - Otherwise continue current medications Lifestyle modicfications: - Continue to SMBG 2x/day - Monitor for s/sx hypoglycemia and contact clinic if BG consistently <70mg/dL - Healthy dietary and lifestyle modifications encouraged - Repeat A1c: 07/2024 MISC: EDUCATION -A shared decision-making approach was used in the development of this plan, involving the [place], clinician, and any caregivers present. The was provided the opportunity express questions or concerns, and the plan was adjusted as needed to address these concerns. -Reviewed with [place] any new medications, changes to the medication list, education, and plan from today's visit. Patient (and/or caregiver) verbalized understanding of the plan, including possible known risks and benefits, and had no additional questions. RTC: TBD for sensor training Time Spent: 30 minutes PBM PharmD Pharmacotherapy Rem V12: PHARMACIST INTERVENTIONS: TYPE 2 DIABETES MELLITUS Medication Intervention(s) Adjust dose or frequency of current medication due to hypoglycemia Medication reconciliation (changes to active VA and non-VA medication lists to reconcile differences) No changes to medication lists made (medication review completed, no discrepancies identified) /cheli/ LAKSHMI TINOCO PHARMD, BCPS CLINICAL PHARMACIST PRACTITIONER Signed: 03/04/2024 13:25 LAKSHMI TINOCO [facility] [place] [facility] Mar 04, 2024 12:54 PM PHARMACY OUTPATIENT NOTE: LOCAL TITLE: PHARMACY CLINIC NOTE STANDARD TITLE: PHARMACY OUTPATIENT NOTE DATE OF NOTE: MAR 04, 2024@12:54 ENTRY DATE: MAR 04, 2024@12:54:36 AUTHOR: LAKSHMI TINOCO EXP COSIGNER: URGENCY: STATUS: COMPLETED PHARMACY CLINIC NOTE Has ADDENDA AURE ROA, 78 yo WHITE MALE, presents for oame-bl-gvme follow-up for diabetes management. MAR 04, 2024 Known Allergies: SULFA DRUGS, FLOMAX, CARDURA Subjective: referred to pharmacy clinic for T2DM management. At time of last visit, semaglutide was initiated and insulin glargine-yfgn was empirically reduced. Today pt reports he is doing well. Denies ADRs of N/V/D/C or changes to vision. Pt reports that his fingers are a bit sore. Pt currently SMBG once daily but will test more if needed. Endorses 1 event where pt had s/sx of hypoglycemia (shireenkey and bindu), tested and blood sugar was 77 mg/dl. Pt states that two weeks ago, he lowered insulin glargine-yfgn to 14 units after AM blood sugar of 87 mg/dl. Target Goals: A1C <7.5%; FB-130 mg/dl Personal goals: - Lose Weight - Reduce insulin dose Objective: Diabetes Medication Regimen: Current diabetes medications: - empagliflozin 25 mg once daily - insulin glargine-yfgn 14 units once daily (evening) - semaglutide 1 mg once weekly Previous diabetes medications: - metformin - dulaglutide 3mg once weekly Medication Adherence: denies adherence issues Diet Patterns: patient eats on avg. 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 Other: - Denies personal or fhx thyroid cancer or MENS - Denies hx pancreatitis - Denies hx MH/depression/denies SI - Denies hx of UTI SMBG: Date Range: 02/04/2024 - 03/04/2024 bG values are displayed in mg/dL # of tests 31 Average 100 SD 12 Highest 128 Lowest 73 Avg tests/day 1 # HI 0 # LO 0 <70 0.0% 70-140 100.0% >140 0.0% Hypos(<69) 0 Date Range: 02/04/2024 - 03/04/2024 bG values are displayed in mg/dL 00:00- 05:30- 08:00- 11:00- 12:30- 17:00- 18:30- 21:30- 05:30 08:00 11:00 12:30 17:00 18:30 21:30 00:00 Suzanna 02/04/2024 112 02/06/2024 98 02/07/2024 105 02/08/2024 122 02/09/2024 104 02/10/2024 110 Suzanna 02/11/2024 89 92 02/12/2024 94 02/13/2024 103 02/14/2024 119 02/15/2024 101 02/16/2024 96 02/17/2024 87 Suzanna 02/18/2024 97 02/19/2024 73 02/20/2024 112 02/21/2024 86 Mon 02/22/2024 105 02/23/2024 97 02/24/2024 92 Suzanna 02/25/2024 102 02/26/2024 93 02/27/2024 94 02/28/2024 95 Mon 02/29/2024 98 77 03/01/2024 103 03/02/2024 128 Suzanna 03/03/2024 112 03/04/2024 103 Date Range: 02/04/2024 - 03/04/2024 bG values are displayed in mg/dL 00:00- 05:30- 08:00- 11:00- 12:30- 17:00- 18:30- 21:30- 05:30 08:00 11:00 12:30 17:00 18:30 21:30 00:00 # of tests 0 0 19 7 4 1 0 0 Average 0 0 104 96 94 77 0 0 SD 11 5.6 16.1 0 Hi/Lo 0 0 0 0 0 0 0 0 Date Range: 02/04/2024 - 03/04/2024 bG values are displayed in mg/dL 02/04/2024 9:52 AM 112 02/06/2024 9:53 AM 98 02/07/2024 9:45 AM 105 02/08/2024 8:58 AM 122 02/09/2024 9:30 AM 104 02/10/2024 9:02 AM 110 02/11/2024 9:36 AM 89 4:52 PM 92 02/12/2024 10:14 AM 94 02/13/2024 10:54 AM 103 02/14/2024 10:39 AM 119 02/15/2024 11:03 AM 101 02/16/2024 10:09 AM 96 02/17/2024 8:51 AM 87 02/18/2024 2:09 PM 97 02/19/2024 1:16 PM 73 02/20/2024 12:53 PM 112 02/21/2024 11:14 AM 86 02/22/2024 10:53 AM 105 02/23/2024 12:11 PM 97 02/24/2024 9:36 AM 92 02/25/2024 9:24 AM 102 02/26/2024 11:05 AM 93 02/27/2024 11:41 AM 94 02/28/2024 11:19 AM 95 02/29/2024 10:42 AM 98 5:10 PM 77 03/01/2024 11:07 AM 103 03/02/2024 10:34 AM 128 03/03/2024 9:55 AM 112 03/04/2024 10:49 AM 103 SMBG assessment: FPBG/PPBG at goal. Pt reported s/sx of hypoglycemia when blood sugar was 77 and 73 mg/dl HYPOGLYCEMIC Events: 2 in last 4 weeks - Hypoglycemia recognition & treatment reviewed: Yes (Rule of 15) Allergies/ADR: SULFA DRUGS, FLOMAX, CARDURA Active and Recently Outpatient Medications (including Supplies): Active Outpatient Medications Status 1) ACCU-CHEK GUIDE (GLUCOSE) TEST STRIP USE 1 STRIP TO TEST ACTIVE BLOOD SUGARS THREE TIMES A DAY 2) ALBUTEROL 90MCG (CFC-F) 200D ORAL INHL INHALE 2 PUFFS BY ACTIVE MOUTH EVERY 4 HOURS NEEDED Indication: FOR ASTHMA ATTACK 3) AMLODIPINE BESYLATE 10MG TAB TAKE ONE TABLET BY MOUTH ONCE ACTIVE DAILY FOR BLOOD PRESSURE/HEART, DO NOT TAKE WITH GRAPEFRUIT JUICE Indication: FOR HIGH BLOOD PRESSURE 4) ATORVASTATIN CALCIUM 40MG TAB TAKE ONE TABLET BY MOUTH ONCE ACTIVE DAILY FOR CHOLESTEROL Indication: FOR HIGH CHOLESTEROL 5) EMPAGLIFLOZIN 25MG TAB TAKE ONE TABLET BY MOUTH ONCE DAILY ACTIVE FOR DIABETES NOTE NEW TABLET STRENGTH/DIRECTIONS Indication: FOR TYPE 2 DIABETES MELLITUS 6) FAMOTIDINE 20MG TAB TAKE ONE TABLET BY MOUTH TWICE DAILY FOR ACTIVE (S) STOMACH ACID Indication: FOR GASTROESOPHAGEAL REFLUX DISEASE 7) FEXOFENADINE HCL 60MG TAB TAKE ONE TABLET BY MOUTH TWICE ACTIVE DAILY NEEDED Indication: FOR ALLERGIES 8) FINASTERIDE 5MG TAB TAKE ONE TABLET BY MOUTH ONCE DAILY ACTIVE Indication: FOR ENLARGED PROSTATE 9) FLUTICAS 250/SALMETEROL 50 INHL DISK 60 INHALE 1 PUFF BY ACTIVE (S) MOUTH TWICE DAILY - RINSE MOUTH AFTER USE Indication: FOR CONTROLLER MEDICATION FOR ASTHMA 10) GABAPENTIN 600MG TAB TAKE ONE TABLET BY MOUTH ONCE DAILY ACTIVE (S) 11) INSULIN,GLARGINE-YFGN 100UNIT/ML PEN 3ML INJECT 28 UNITS ACTIVE SUBCUTANEOUSLY ONCE DAILY 12) LANCET,SOFTCLIX USE 1 LANCET TOPICALLY THREE TIMES A DAY TO ACTIVE TEST BLOOD SUGAR 13) LOSARTAN 50MG TAB TAKE ONE TABLET BY MOUTH ONCE DAILY FOR ACTIVE BLOOD PRESSURE/HEART Indication: FOR HIGH BLOOD PRESSURE 14) MONTELUKAST NA 10MG TAB TAKE ONE TABLET BY MOUTH ONCE DAILY ACTIVE FOR ASTHMA 15) NEEDLE,PEN 31G,5MM USE 1 NEEDLE SUBCUTANEOUSLY ONCE DAILY ACTIVE (S) FOR USE WITH INSULIN PENS 16) OXYBUTYNIN CHLORIDE 5MG SA TAB TAKE ONE TABLET BY MOUTH ONCE ACTIVE DAILY FOR BLADDER INSTABILITY Indication: FOR FREQUENT URINATION 17) SEMAGLUTIDE 1MG/0.75ML INJ PEN 3ML INJECT 1MG SUBCUTANEOUSLY ACTIVE ONCE A WEEK Indication: FOR TYPE 2 DIABETES MELLITUS Inactive Outpatient Medications Status 1) ALBUTEROL 90MCG (CFC-F) 200D ORAL INHL INHALE 1 PUFF BY DISCONTINUED MOUTH ONCE DAILY (EDIT) Indication: FOR ASTHMA ATTACK 2) FAMOTIDINE 20MG TAB TAKE ONE TABLET BY MOUTH TWICE DAILY FOR DISCONTINUED STOMACH ACID Indication: FOR GASTROESOPHAGEAL REFLUX DISEASE 3) FEXOFENADINE HCL 60MG TAB TAKE ONE TABLET BY MOUTH TWICE DISCONTINUED DAILY NEEDED Indication: FOR ALLERGIES 4) FLUTICAS 250/SALMETEROL 50 INHL DISK 60 INHALE 1 PUFF BY DISCONTINUED MOUTH TWICE DAILY - RINSE MOUTH AFTER USE Indication: FOR CONTROLLER MEDICATION FOR ASTHMA 5) INSULIN,GLARGINE-YFGN 100UNIT/ML PEN 3ML INJECT 28 UNITS DISCONTINUED SUBCUTANEOUSLY ONCE DAILY 6) MULTIVIT/OPHTH AREDS2/LUTE/ZEAX CAP/TAB TAKE 1 CAPSULE BY MOUTH TWICE DAILY IN THE MORNING AND EVENING, WITH FOOD Active Non-VA Medications Status 1) Non-VA ASPIRIN 81MG EC TAB 81MG BY MOUTH DAILY ACTIVE 2) Non-VA HYDROCHLOROTHIAZIDE 25MG TAB 25MG BY MOUTH EVERY DAY ACTIVE 3) Non-VA MELOXICAM 15MG TAB 7.5MG BY MOUTH ONCE DAILY ACTIVE NEEDED Indication: FOR PAIN 26 Total Medications Labs: CHEM 7 TREND LAB CUMULATIVE SELECTED Collection DT Spec GLUCOSE BUN CREATIN Sodium K+/Pot CL CO2 02/05/2024 10:04 SERUM 104 H 22 0.96 140 4.5 105 25 04/20/2023 10:50 SERUM 121 H 16 1.02 144 4.3 107 28 10/17/2022 13:33 SERUM 124 H 15 0.86 142 4.6 104 29 03/21/2022 14:02 SERUM 141 H 19 0.98 141 5.1 H 105 29 09/26/2021 13:38 SERUM 169 H 23 1.08 141 4.8 106 28 CHEM 7 Results Collection DT Spec Sodium K+/Pot CL CO2 GLUCOSE BUN 02/05/2024 10:04 SERUM 140 4.5 105 25 104 H 22 04/20/2023 10:50 SERUM 144 4.3 107 28 121 H 16 10/17/2022 13:33 SERUM 142 4.6 104 29 124 H 15 03/21/2022 14:02 SERUM 141 5.1 H 105 29 141 H 19 09/26/2021 13:38 SERUM 141 4.8 106 28 169 H 23 07/05/2018 11:02 SERUM 140 4.4 103 29 115 H 24 07/01/2017 14:03 SERUM 141 4.7 103 31 H 149 H 15 06/17/2016 14:05 SERUM 140 4.1 103 32 H 128 H 19 eGFR CKD-EPI 202002/05/24 10:04 81 SERUM LIVER PANEL TREND Collection DT Spec AST ALT T BILI ALK LAINEY T. PROT ALBUMIN 02/05/2024 10:04 SERUM 28 39 0.5 61 5.7 L 3.5 04/20/2023 10:50 SERUM 23 34 0.7 66 6.3 3.7 10/17/2022 13:33 SERUM 17 25 0.6 67 6.2 3.7 03/21/2022 14:02 SERUM 16 21 0.8 62 6.3 3.5 09/26/2021 13:38 SERUM 27 35 0.8 62 6.1 3.5 HEMOGLOBIN A1C TREND Collection DT Spec HGBA1c 02/05/2024 10:04 BLOOD 5.3 04/20/2023 10:50 BLOOD 6.0 H 10/17/2022 13:33 BLOOD 5.8 H 03/21/2022 14:02 BLOOD 6.3 H 09/26/2021 13:38 BLOOD 6.7 H LIPID PANEL TREND Collection DT Spec CHOL HDL CHO/HDL LDL-c TRIG 04/20/2023 10:50 SERUM 100 42 2.4 46 61 10/17/2022 13:33 SERUM 180 40 4.5 115 124 03/21/2022 14:02 SERUM 100 36 L 2.8 49 75 09/26/2021 13:38 SERUM 92 35 L 2.6 37 100 07/05/2018 11:02 SERUM 142 46 3.1 77 96 Vitals: Ht: 68 in [172.7 cm] (04/22/2023 10:50) Wt: 226 lb [102.51 kg] (04/22/2023 10:50) BMI: BMI: 34.4 BP: 130/80 (04/22/2023 11:21) HR: 67 (04/22/2023 10:50) Assessment: DIABETES: Goal: A1c goal is <7.5% with a goal fasting BG average of 80-130mg/dL and a goal post-prandial BG average of <180mg/dL per ADA guideline. Goal adjusted based on age and CAD history. Currently at goal with A1C 5.3% 02/05/24. Despite empiric reduction from 28 units to 18 units of insulin glargine-yfgn, pt reported two hypoglycemia events. Pt self adjusted insulin to 14 units daily. Will further reduce at this time given current A1C. Pt requesting CGM, has experience with them in the past. Reports soreness in fingers from frequent testing. Agree it would be useful to identify patterns as we lower and eventually discontinue insulin. Name of apps given to pt to download. He will use [email or web address] as reader. CARDIOVASCULAR: For patients 60 years and over with Diabetes, recommend a goal of <140/90, with added benefit of reducing SBP closer to 130. 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 - Medications reconciled - Otherwise continue current medications Lifestyle modicfications: - Continue to SMBG 2x/day - Monitor for s/sx hypoglycemia and contact clinic if BG consistently <70mg/dL - Healthy dietary and lifestyle modifications encouraged - Repeat A1c: 07/2024 MISC: EDUCATION -A shared decision-making approach was used in the development of this plan, involving the [place], clinician, and any caregivers present. The [place] was provided the opportunity express questions or concerns, and the plan was adjusted as needed to address these concerns. -Reviewed with [place] any new medications, changes to the medication list, education, and plan from today's visit. Patient (and/or caregiver) verbalized understanding of the plan, including possible known risks and benefits, and had no additional questions. RTC: TBD for sensor training Time Spent: 30 minutes PBM PharmD Pharmacotherapy Rem V12: PHARMACIST INTERVENTIONS: TYPE 2 DIABETES MELLITUS Medication Intervention(s) Adjust dose or frequency of current medication due to hypoglycemia Medication reconciliation (changes to active VA and non-VA medication lists to reconcile differences) No changes to medication lists made (medication review completed, no discrepancies identified) /aurelia TINOCO PHARMD, [facility] CLINICAL PHARMACIST PRACTITIONER Signed: 03/04/2024 13:25 04/12/2024 ADDENDUM STATUS: COMPLETED AMSA, please schedule appointment for: - [facility] PHARM PACT 2 Please schedule for 04/19/24 @1724 Thank you! /aurelia TINOCO PHARMD, [facility] CLINICAL PHARMACIST PRACTITIONER Signed: 04/12/2024 13:19 Receipt Acknowledged By: * AWAITING SIGNATURE * [facility]
--- NOTE | ~2024-10-27 | XR_ITS ---
CLINICAL HISTORY: occipital neuralgia --- Additional Notes or Special Instructions: wo 3 views cervical spine Comparison: None provided Findings: Straightening of the normal cervical lordosis. No acute fractures or dislocation. Multilevel disc height loss with reactive endplate change and osteophyte formation from C3 to C7. Multilevel facet hypertrophy. Left-sided carotid calcification. Lateral masses of C1 are symmetric about the dens. No prevertebral soft tissue swelling. IMPRESSION: Degenerative change throughout the cervical spine. This document has been electronically signed by: Cally Vail MD on 10/28/2024 08:45:45
--- OUTSIDE RECORDS SUMMARY | 2024-10-27 13:15 | XMS_ITS | Encounter Summary ---
Author Organization [facility] Address [address] [facility] [address] [place] [address] Phone Care Team Providers Care Distresser Name Role Phone Timothy Cloud MD Primary Care Provider [phone] Malina Lopez MD Unavailable Arturo Torres MD Unavailable [phone] Edmund Chairez MD Unavailable [phone] Marilu Moreno MD Unavailable [phone] César Stein MD Primary Care Provider [phone] Primo Cisneros DO Primary Care Provider [phone] Reason for Referral * MRI/CAT Scan - Closed Specialty Diagnoses / Procedures Referred By Contac t Referred To Contact Radiology Diagnoses Type 2 diabetes mellitus with diabetic neuropathy, without long-term current use of insulin Essential hypertension Abnormal EKG Procedures NC Myocardial Perfusion Stress Single NC Myocardial Perfusion Exercise Multiple Timothy Cloud MD Phone: tel: fax: mailto:[email or web address] Referral ID Status Reason Start Date Expiration Date Visits Re quested Visits Authorized [id number] Closed 11/17/2017 11/17/2018 1 1 Encounter Details Date Type Department Care Team (Late st Contact Info) Description 12/07/2017 Ancillary Orders [facility] Internal Medicine [address] [place] [address] Timothy Cloud MD [address] [place] [address] [address] [place] [address] [email or web address] Type 2 diabetes mellitus with diabetic neuropathy, without long-term current use of insulin; Essential hypertension; Abnormal EKG Social History Tobacco Use Types Packs/Day Years Used Date Smoking Tobacco: Former Cigarettes Q uit: 1989 Smokeless Tobacco: Never Comments:approx 30 pack year s Alcohol Use Standard Drinks/Week Comments No 0 (1 standard drink = 0.6 oz pur e alcohol) Sex and Gender Information Value Date Recorded Sex Assigned at Male 02/23/2019 12:12 PM EST Legal Sex Male 6:37 PM EST Gender Identity Male 02/23/2019 12:12 PM EST Sexual Orientation Not on file documented as of this encounter Plan of Treatment Upcoming Encounters Date Type Department Care Team (Late st Contact Info) Description 10/12/2026 11:20 AM EDT Office Visit [facility] Urology [address] [place] [address] Arturo Torres MD [address] [place] [address] [email or web address] documented as of this encounter Results * NC Myocardial Perfusion Stress Single (12/03/2017 10:37 AM EDT) Nuc Stress EF 47 % LV Systolic Volume Index 59 mL/m2 LV Diastolic Volume Index 111 mL/m2 Anatomical Region Laterality Modality Heart Ultrasound Narrative 12/07/2017 3:09 PM EDT Normal study. There is no evidence of myocardial infarction or ischemia. Normal LV size and function with no regional wall motion abnormalities. Very low likelihood of hemodynamically significant coronary artery disease. Low risk study for myocardial events or cardiac in the next two years. Nuclear Study Quality Overall image quality is good. The test performed was a Stress Only Dequan Protocol exercise stress test. Tc99m Sestamibi was administered intravenously at peak exercise followed by one minute of exercise. The stress images were obtained 20 minutes following the radiopharmaceutical injection.. There are no artifacts present. Study was successfully gated. Response to Stress BMI:32.21 Patient exercised for 7:16 minutes on a modified Dequan protocol achieving 7.0 METs and 87% MPHR (129 BPM). The test was terminated due to fatigue. SUMMARY: 1. RESTING ECG: Sinus rhythm HR 62 bpm with first degree block, slight IVCD, and NSSTW abnormalities. 2. EXERCISE ECG: Exaggeration of baseline abnormalities with worsening of inferior TWI and new TWI in V4-V6. 3. SYMPTOMS: Patient did not report symptoms concerning for angina. 4. PHYSIOLOGY: Appropriate exercise physiology. Resting heart rate of 62 bpm ruddy to a max heart rate of 129 bpm, this represents 87% of her MPHR. Resting BP of 128/82 ruddy to a max BP of 200/80. Vital signs stable and returned to baseline prior to discharge from the lab. Achieved 7.0 METs consistent with average functional capacity for age. 5. ARRHYTHMIA: Rare isolated PAC. CONCLUSION: Equivocal EKG portion of exercise nuclear stress test with ECG changes suggestive of ischemia and without symptoms concerning for angina. Appropriate exercise physiology. Average functional capacity. Hallman treadmill score of +7.25 consistent with mild risk. Report reviewed with Dr. Dozier. Nuclear images and report to follow. Chelsea Ivey PA-C. Stress Function Comments Post-stress ejection fraction was 47%. Stress end diastolic index: 111 mL/m2. Stress end systolic index: 59 mL/m2. Nuclear Prior Study There is no prior study available for comparison. Perfusion Scoring Stress Summed Score: 0 Percent Normal: 0.00% The left ventricular perfusion is normal. Timothy Cloud MD CV NM CARDIAC Final Resu lt documented in this encounter Visit Diagnoses Diagnosis Type 2 diabetes mellitus with diabetic neuropathy, without long-term current use of insulin Essential hypertension Unspecified essential hypertension Abnormal EKG Nonspecific abnormal electrocardiogram (ECG) (EKG) Type 2 diabetes mellitus with diabetic neuropathy, without long-term current use of insulin Essential hypertension Unspecified essential hypertension Abnormal EKG Nonspecific abnormal electrocardiogram (ECG) (EKG) documented in this encounter Care Teams Distresser Relationship Specialty Start Date End Date Timothy Cloud MD [address] [place] [address] [address] [place] [address] [email or web address] PCP - General Internal Medicine 03/25/1703/14 César Stein MD [address] [place] [id number] PCP - General 07/24/22 10/03/24 Primo Cisneros DO [address] [facility] [place] [address] [email or web address] PCP - General Internal Medicine 10/04/24 Malina Lopez MD [address] [place] [address] [email or web address] Cardiology 05/22/20 Arturo Torres MD [address] [place], [place] [address] [place] [address] [email or web address] Urology 05/22/20 Edmund Chairez MD [address] [place] [address] [email or web address] Pulmonary Disease 05/22/20 Marilu Moreno MD [address] [place] [address] [email or web address] Endocrinology 05/22/20 documented as of this encounter Additional Source Comments The information contained in this document represents components of the legal health record. It is not the complete legal health record.[facility]
--- OUTSIDE RECORDS SUMMARY | 2024-10-27 13:15 | XMS_ITS | Clinical Summary ---
Author Organization [facility] Facility Address [address] [address] Care Team Providers Care Marriage And Family Counselor Name Role Phone Kraig Willingham MD Primary Care Provider [phone] Medications albuterol HFA (PROVENTIL HFA;VENTOLIN HFA) 108 (90 Base) MCG/ACT inhaler Inhale 2 puffs 02/13/2020 Active amLODIPine (NORVASC) 10 MG tablet TAKE 1 TABLET BY MOUTH EVERY DAY 12/14/2019 Active aspirin (ST GILBERT) 81 MG EC tablet Take 81 mg by mouth daily Active apixaban (ELIQUIS) 5 MG tablet Take 5 mg by mouth twice a day 02/06/2020 Active atorvastatin (LIPITOR) 40 MG tablet TAKE 1 TABLET BY MOUTH EVERY DAY 03/08/2020 Active cholecalciferol (VITAMIN D-3) 25 MCG (1000 UT) tablet Take 1,000 Units by mouth daily Active zafirlukast (ACCOLATE) 20 MG tablet Take 20 mg by mouth twice a day 11/22/2019 Active metoprolol tartrate (LOPRESSOR) 50 MG tablet Take 100 mg by mouth twice a day Active metFORMIN XR (GLUCOPHAGE-XR) 500 MG 24 hr tablet Take 1,000 mg by mouth twice a day 02/18/2018 Active losartan (COZAAR) 25 MG tablet TAKE 2 TABLETS BY MOUTH EVERY DAY 06/08/2019 Active insulin glargine (LANTUS) 100 UNIT/ML injection 28 Units Active hydrOXYzine (ATARAX) 25 MG tablet Take 25 mg by mouth 3 (three) times a day if needed 12/28/2019 Active gabapentin (NEURONTIN) 600 MG tablet Take 600 mg by mouth daily 11/01/2019 Active Flaxseed, Linseed, (Flax Seed Oil) 1000 MG capsule Take 1,000 mg by mouth twice a day Active finasteride (PROSCAR) 5 MG tablet TAKE 1 TABLET BY MOUTH EVERY DAY 11/18/2019 Active famotidine (PEPCID) 20 MG tablet TAKE 1 TABLET BY MOUTH TWICE A DAY 02/27/2020 Active cyanocobalamin (VITAMIN B-12) 100 MCG tablet Take 100 mcg by mouth daily Active colchicine 0.6 MG tablet Take 0.6 mg by mouth 2 (two) times a day if needed 11/26/2018 Active citalopram (CeleXA) 20 MG tablet TAKE 1 TABLET BY MOUTH EVERY DAY 11/30/2019 Active Active Problems Problem Noted Date Diagnosed Date Gout 04/07/2017 Essential hypertension 06/27/2016 Resolved Problems Problem Noted Date Diagnosed Date Resolved Date Degeneration of cervical intervertebral disc 04/15/2020 Benign prostatic hyperplasia with outflow obstruction 04/15/2020 04/15/2020 Aortic valve regurgitation 04/15/2020 0 04/15/2020 Overview (04/15/2020): mild on echo 05/18/19 Chronic obstructive pulmonary disease 03/02/2020 04/15/2020 Gastroesophageal reflux disease 04/28/2019 04/15/2020 Insomnia 11/26/2018 04/15/2020 Anxiety 04/07/2017 04/15/2020 Social History Tobacco Use Types Packs/Day Years Used Date Smoking Tobacco: Never Assessed Sex and Gender Information Value Date Recorded Sex Assigned at Not on file Legal Sex Male 3:53 PM EST Gender Identity Not on file Sexual Orientation Not on file Plan of Treatment Health Maintenance Due Date Last Done Comments Diabetes: Hemoglobin A1C 02/02/2020 Diabetes: Ophthalmology Exam 02/02/2020 Diabetes: Pedal Pulse Checked 02/02/2020 Diabetes: Sensory Foot Exam 02/02/2020 Diabetes: Visual Foot Exam 02/02/2020 Influenza Vaccine (#1) 2024 9, 01/09/2017, 02/12/2016, Additional history exists Pneumococcal Vaccine: 50+ Years Completed 01/13/2017, 06/03/2012 Pneumococcal Vaccine: Peds (0 to 5 Years) and At-Risk Patients (6 to 49 Years) Discontinued 01/13/2017, 06/03/2012 Hepatitis B Vaccine Aged Out No longe r eligible based on patient's age to complete this topic Insurance [employer] Care Teams Marriage And Family Counselor Relationship Specialty Start Date End Date Kraig Willingham MD [address] [place] [address] PCP - General Internal Medicine 02/02/20
== END 2024-10-27 13:11 | disposition home or self-care (01) ==
LOC: HO.XRAY 13:10
PROVIDERS: PCP Internal Medicine; Visit Provider Internal Medicine
DX: M54.81 Occipital neuralgia (principal)
CPT/HCPCS: 72040

== ENCOUNTER → 2024-10-27 13:18 | Outpatient (BNV) | payer MEDICARE, SELFPAY | PROVIDERS: PCP Internal Medicine; Visit Provider Radiology Diagnostic Radiology | DX: M47.812 Spondylosis without myelopathy or radiculopathy, cervical region (principal) | CPT/HCPCS: 72040 ==

== ENCOUNTER 2024-11-07 11:01 | Outpatient (REF) | payer MEDICARE, SELFPAY ==
--- OUTSIDE RECORDS SUMMARY | 2024-11-07 12:17 | XMS_ITS | Clinical Summary ---
Author Organization [facility] Facility Address [address] [address] Care Team Providers Care Coremaker Apprentice Name Role Phone Kraig Willingham MD Primary Care Provider [phone] Medications albuterol HFA (PROVENTIL HFA;VENTOLIN HFA) 108 [...] this topic Insurance [employer] Care Teams Coremaker Apprentice Relationship Specialty Start Date End Date Kraig Willingham MD [address] [place] [address] PCP - General Internal Medicine 02/02/20
--- OUTSIDE RECORDS SUMMARY | 2024-11-07 12:17 | XMS_ITS | Encounter Summary ---
Author Organization [facility] Address [address] [facility] [address] [place] [address] Phone Care Team Providers Care Records Management Technician Name Role Phone Timothy Cloud MD Primary Care Provider [phone] Malina Lopez MD Unavailable [phone] Arturo Torres MD Unavailable [phone] Edmund Chairez MD Unavailable [phone] Marilu Moreno MD Unavailable [phone] César Stein MD Primary Care Provider [phone] Primo Cisneros DO Primary Care Provider [phone] Reason for Referral * MRI/CAT Scan - Closed Specialty Diagnoses / Procedures Referred By Contac t Referred To Contact Radiology Diagnoses Type 2 diabetes mellitus with diabetic neuropathy, without long-term current use of insulin Essential hypertension Abnormal EKG Procedures NC Myocardial Perfusion Stress Single NC Myocardial Perfusion Exercise Multiple Timothy Cloud MD Phone: tel: fax: mailto:[email or web address] Referral ID Status Reason Start Date Expiration Date Visits Re quested Visits Authorized [id number] Closed 11/17/2017 11/17/2018 1 1 Encounter Details Date Type Department Care Team (Late st Contact Info) Description 12/07/2017 Ancillary Orders [facility] Internal Medicine [address] [place] [address] Timothy Cloud MD [address] [place] [address] [address] [place] [address] [email or web address] Type 2 diabetes mellitus with diabetic neuropathy, [...] Description 10/12/2026 11:20 AM EDT Office Visit [facility] Urology [address] [place] [address] Arturo Torres MD [address] [place] [address] [email or web address] documented as of this encounter Results * [...] (EKG) documented in this encounter Care Teams Records Management Technician Relationship Specialty Start Date End Date Timothy Cloud MD [address] [place] [address] [address] [place] [address] [email or web address] PCP - General Internal Medicine 03/25/1703/14 César Stein MD [address] [place] [phone] PCP - General 07/24/22 10/03/24 Primo Cisneros DO [address] [facility] [place] [address] [email or web address] PCP - General Internal Medicine 10/04/24 Malina Lopez MD [address] [place] [address] [email or web address] Cardiology 05/22/20 Arturo Torres MD [address] [place], [place] [address] [place] [address] [email or web address] Urology 05/22/20 Edmund Chairez MD [address] [place] [address] [email or web address] Pulmonary Disease 05/22/20 Marilu Moreno MD [address] [place] [address] [email or web address] Endocrinology 05/22/20 documented as of this encounter Additional Source Comments The information contained in this document represents components of the legal health record. It is not the complete legal health record.[facility]
[2024-11-07 13:05] LABS: MANUAL DIFF FLAG NO
[2024-11-07 13:08] LABS: Hematocrit 46.9 % (42.0-52.0); Hemoglobin 15.4 g/dl (14.0-18.0); Imm Gran Abs Auto 0.01 X10*3/uL (0.00-0.03); Imm Gran Pct Auto 0.2 % (0.0-0.4); Lymphocytes Absolute Auto 0.8 X10*3/uL (1.2-4.9); Mean Corpuscular HGB Conc 32.8 g/dl (31.0-36.0); Mean Corpuscular Hemoglobin 31.1 pg (27.0-33.0); Mean Corpuscular Volume 94.7 fL (80.0-98.0); NRBC Abs Auto 0.000 X10*3/uL (0.0-0.012); NRBC Pct Auto 0.0 /100WBC (0.0-0.2); Platelet Count 188 X10*3/uL (160-400); Red Blood Count 4.95 X10*6/uL (4.60-5.80); White Blood Count 6.4 X10*3/uL (4.8-10.8)
[2024-11-07 13:32] LABS: Alanine Aminotransferase 34 U/L (0-40); Albumin Level 4.0 g/dL (3.5-5.0); Alkaline Phosphatase 65 U/L (39-117); Anion Gap 11 (12-20); Aspartate Amino Transferase 31 U/L (5-37); Blood Urea Nitrogen 21 mg/dL (9-16); Calcium 9.0 mg/dL (8.4-10.2); Carbon Dioxide 30 mmol/L (22-29); Chloride 105 mmol/L (96-108); Cholesterol 97 mg/dL (<200); Estimated Glomerular Filt Rate > 60; HDL Cholesterol 44 mg/dL (>40); Potassium 4.8 mmol/L (3.3-5.1); Sodium 141 mmol/L (135-145); Total Protein 6.1 g/dL (6.5-8.0); Triglycerides 58 mg/dL (<150)
[2024-11-07 13:41] LABS: Hemoglobin A1C 167.8456 umol/L; Total Hemoglobin (HGBA1C) 4036.4935 umol/L
[2024-11-07 13:43] LABS: Prostate Specific Antigen 1.49 ng/mL (<0.05-4.0)
== END 2024-11-07 11:02 | disposition home or self-care (01) ==
LOC: HO.MANLDS 11:01
PROVIDERS: Visit Provider Internal Medicine
DX: I10 Essential (primary) hypertension (principal); Z12.5 Encounter for screening for malignant neoplasm of prostate
CPT/HCPCS: 36415; 80053; 80061; 82306; 83036; 84153; 85025

== ENCOUNTER 2024-12-13 13:58 | Outpatient (REF) | payer MEDICARE, SELFPAY ==
[2024-12-13 14:27] LABS: Appearance Urine Clear; Glucose Urine UA >=1000 mg/dL (Negative); PH 6.0 (5.0-9.0); Specific Gravity - Urine >= 1.030 (1.005-1.025); UMIC TRIGGER UACC YES
--- OUTSIDE RECORDS SUMMARY | 2024-12-13 17:14 | XMS_ITS | Encounter Summary ---
Author Organization [facility] Address [address] [place] [address] Phone Care Team Providers Care Manufacturing Engineering Professor Name Role Phone Malina Lopez MD Unavailable [phone] Arturo Torres MD Unavailable [phone] Edmund Chairez MD Unavailable [phone] Marilu Moreno MD Unavailable [phone] César Stein MD Primary Care Provider [phone] Primo Cisneros DO Primary Care Provider [phone] Reason for Visit * Reason Comments Medication Refill Encounter Details Date Type Department Care Team ([facility] st Contact Info) Description 08/04/2022 Refill [facility] Internal Medicine [address] [place] [address] Timothy Cloud MD [address] [place] [address] [email or web address] Medication Refill Social History Tobacco Use Types Packs/Day Years Used Date Smoking Tobacco: Former Cigarettes Q uit: 1989 Smokeless Tobacco: Never Comments:approx 30 pack year s Alcohol Use Standard Drinks/Week Comments No 0 (1 standard drink = 0.6 oz pur e alcohol) Education Answer Date Recorded Are you interested in more education? Not on eliud e 07/23/2022 Are you concerned about learning? Not on file 07/23/2022 No 07/23/2022 No 07/23/2022 Sex and Gender Information Value Date Recorded Sex Assigned at Male 02/23/2019 12:12 PM EST Legal Sex Male 6:37 PM EST Gender Identity Male 02/23/2019 12:12 PM EST Sexual Orientation Not on file documented as of this encounter Plan of Treatment Upcoming Encounters Date Type Department Care Team (Late st Contact Info) Description 10/12/2026 11:20 AM EDT Office Visit [facility] Urology [address] [place], [place] [address]32-3 [place] [address] Arturo Torres MD [address] [place] [address] 11-3 [place] [address] [email or web address] documented as of this encounter Visit Diagnoses Not on filedocumented in this encounter Additional Health Concerns Assessment Noted Time PHQ-2 Depression Total Score: 0 06/05/19 22 1:13 PM EDT documented as of this encounter Care Teams Manufacturing Engineering Professor Relationship Specialty Start Date End Date César Stein MD [address] [place] [phone] PCP - General 07/24/22 10/03/24 Primo Cisneros DO [address] [facility] [place] [address] [email or web address] PCP - General Internal Medicine 10/04/24 Malina Lopez MD [address] [address] [email or web address] Cardiology 05/22/20 Arturo Torres MD [address] [place] [address] 11-[address] [place] [address] [email or web address] Urology 05/22/20 Edmund Chairez MD 22 [facility] [address] [place] [address] [email or web address] Pulmonary Disease 05/22/20 Marilu Moreno MD [address] [place] [address] [email or web address] Endocrinology 05/22/20 documented as of this encounter Additional Source Comments The information contained in this document represents components of the legal health record. It is not the complete legal health record.[facility]
--- OUTSIDE RECORDS SUMMARY | 2024-12-13 17:14 | XMS_ITS | Clinical Summary ---
Author Organization [facility] Facility Address [address] [address] Care Team Providers Care Commercial Portfolio Manager Name Role Phone Kraig Willingham MD Primary Care Provider [phone] Medications albuterol HFA (PROVENTIL HFA;VENTOLIN HFA) 108 [...] this topic Insurance [employer] Care Teams Commercial Portfolio Manager Relationship Specialty Start Date End Date Kraig Willingham MD [address] [place] [address] PCP - General Internal Medicine 02/02/20
--- OUTSIDE RECORDS SUMMARY | 2024-12-13 17:14 | XMS_ITS | Encounter Summary ---
Author Organization [facility] Address [address] [place] [address] Phone Care Team Providers Care Physical Therapy Aid Name Role Phone Timothy Cloud MD Primary Care Provider [phone] Malina Lopez MD Unavailable [phone] Arturo Torres MD Unavailable [phone] Edmund Chairez MD Unavailable [phone] Marilu Moreno MD Unavailable [phone] César Stein MD Primary Care Provider [phone] Primo Cisneros DO Primary Care Provider [phone] Reason for Referral * MRI/CAT Scan - Closed Specialty Diagnoses / Procedures Referred By Contac t Referred To Contact Radiology Diagnoses Type 2 diabetes mellitus with diabetic neuropathy, without long-term current use of insulin Essential hypertension Abnormal EKG Procedures NC Myocardial Perfusion Stress Single NC Myocardial Perfusion Exercise Multiple Timothy Cloud MD Phone: tel: fax: mailto:[email or web address] Referral ID Status Reason Start Date Expiration Date Visits Re quested Visits Authorized [id number] Closed 11/17/2017 11/17/2018 1 1 Encounter Details Date Type Department Care Team (Late st Contact Info) Description 12/07/2017 Ancillary Orders [facility] Internal Medicine [address] [place] [address] Timothy Cloud MD [address] [place] [address] 101 [place] [address] [email or web address] Type 2 diabetes mellitus with diabetic neuropathy, [...] Description 10/12/2026 11:20 AM EDT Office Visit [facility] Urology [address] [place] [address] Arturo Torres MD [address] [place] [address] [email or web address] documented as of this encounter Results [...] (EKG) documented in this encounter Care Teams Physical Therapy Aid Relationship Specialty Start Date End Date Timothy Cloud MD [address] [place] [address] 101 [place] [address] [email or web address] PCP - General Internal Medicine 03/25/1703/14 César Stein MD [address] [place] [phone] PCP - General 07/24/22 10/03/24 Primo Cisneros DO [address] [facility] [place] [address] [email or web address] PCP - General Internal Medicine 10/04/24 Malina Lopez MD [address] [place] [address] [email or web address] Cardiology 05/22/20 Arturo Torres MD [address] [place], [place] [address] [place] [address] [email or web address] Urology 05/22/20 Edmund Chairez MD [address] [place] [address] [email or web address] Pulmonary Disease 05/22/20 Marilu Moreno MD [address] [place] [address] [email or web address] Endocrinology 05/22/20 documented as of this encounter Additional Source Comments The information contained in this document represents components of the legal health record. It is not the complete legal health record.[facility]
--- OUTSIDE RECORDS SUMMARY | 2024-12-13 17:14 | XMS_ITS | Encounter Summary ---
Author Organization [facility] Address [address] [place] [address] Phone Care Team Providers Care Inspector Timers Name Role Phone Malina Lopez MD Unavailable [phone] Arturo Torres MD Unavailable [phone] Edmund Chairez MD Unavailable [phone] Marilu Moreno MD Unavailable [phone] Primo Cisneros DO Primary Care Provider [phone] Reason for Referral * Consultation (Elective) - New Request Specialty Diagnoses / Procedures Referred By Edmond prince Referred To Contact Cardiology Diagnoses Hyperlipidemia, unspecified hyperlipidemia type Primo Cisneros DO 179 [facility] [place] [address] Phone: tel: fax: mailto: [facility] [address] [place] [address] Phone: tel: Referral ID Status Reason Start Date Expiration Date V isits Requested Visits Authorized [id number] New Request 12/09/2024 12/09/2025 1 1 Encounter Details Date Type Department Care Team ([facility] st Contact Info) Description 12/09/2024 Transcribe [facility] [address] [facility] 3rd Floor, [address] [place] [address] Primo Cisneros DO 179 [place] [address] [email or web address] Hyperlipidemia, unspecified hyperlipidemia type (Primary Dx) Social History Tobacco Use Types Packs/Day Years [...] on file 07/23/2022 No 07/23/2022 No 07/23/2022 Digital Access Answer Date Recorded No 08/16/2022 No 08/16/2022 Reliable internet access at home? Not on file 08/16/2022 Device with a working camera? Not on file Sex and Gender Information Value Date Recorded Sex Assigned at Male 02/23/2019 12:12 PM EST Legal Sex Male 6:37 PM EST Gender Identity Male 02/23/2019 12:12 PM EST Sexual Orientation Not on file documented as of this encounter Plan of Treatment Upcoming Encounters Date Type Department Care Team ([facility] st Contact Info) Description 10/12/2026 11:20 AM EDT Office Visit [facility] Urology [address] [place] [address] Arturo Torres MD [address] [place] [address] [email or web address] Scheduled Referrals Name Type Priority Associated Diagnoses Orde r Schedule Ambulatory referral to [facility] Cardiology Outpatient Referral Routine Hyperlipidemia, unspecified hyperlipidemia type Ordered: 12/09/2024 documented as of this encounter Visit Diagnoses Diagnosis Hyperlipidemia, unspecified hyperlipidemia type- Primary documented in this encounter Additional Health Concerns Assessment Noted Time PHQ-2 Depression Total Score: 0 06/05/19 22 1:13 PM EDT documented as of this encounter Care Teams Inspector Timers Relationship Specialty Start Date End Date Primo Cisneros DO 179 [place] [address] [email or web address] PCP - General Internal Medicine 10/04/24 Malina Lopez MD 863 [facility] 101 [place] [address] [email or web address] Cardiology 05/22/20 Arturo Torres MD [address] [place] [address] 11-3 [place] [address] [email or web address] Urology 05/22/20 Edmund Chairez MD 22 [facility] 301 [place] [address] [email or web address] Pulmonary Disease 05/22/20 Marilu Moreno MD [address] [facility] 3rd [place] [address] [email or web address] Endocrinology 05/22/20 documented as of this encounter Additional Source Comments The information contained in this document represents components of the legal health record. It is not the complete legal health record.[facility]
--- OUTSIDE RECORDS SUMMARY | 2024-12-13 17:14 | XMS_ITS | Encounter Summary ---
Author Organization [facility] Address [address] [place] [address] Phone Care Team Providers Care Job Lithographer Name Role Phone Timothy Cloud MD Primary Care Provider [phone] Malina Lopez MD Unavailable [phone] Arturo Torres MD Unavailable [phone] Edmund Chairez MD Unavailable [phone] Marilu Moreno MD Unavailable [phone] César Stein MD Primary Care Provider [phone] Primo Cisneros DO Primary Care Provider [phone] Encounter Details Date Type Department Care Team (Late st Contact Info) Description 09/05/2020 Procedure Pass [facility] Endoscopy Admitting Dept Virtual Department [address] [place] [address] Social History Tobacco Use Types Packs/Day Years [...] Encounters Date Type Department Care Team (Late Contact Info) Description 10/12/2026 11:20 AM EDT Office Visit [facility] Urology [address] [place], [place] [address]42[address]3 [place] [address] Arturo Torres MD [address] [place] [address] [email or web address] documented as of this encounter Visit Diagnoses Not on filedocumented in this encounter Additional Health Concerns Assessment Noted Time PHQ-2 Depression Total Score: 0 04/28/19 20 11:14 AM EST documented as of this encounter Care Teams Job Lithographer Relationship Specialty Start Date End Date Timothy Cloud MD [address] [place] [address] [email or web address] PCP - General Internal Medicine 03/25/1703/14 César Stein MD [address] [place] [phone] PCP - General 07/24/22 10/03/24 Primo Cisneros DO [address] [place] [address] [email or web address] PCP - General Internal Medicine 10/04/24 Malina Lopez MD [address] [place] [address] [email or web address] Cardiology 05/22/20 Arturo Torres MD [address] [place] [address] 113 [place] [address] [email or web address] Urology 05/22/20 Edmund Chairez MD 22 [facility], [address] [place] [address] Pulmonary Disease 05/22/20 Marilu Moreno MD [address] [place] [address] [email or web address] Endocrinology 05/22/20 documented as of this encounter Additional Source Comments The information contained in this document represents components of the legal health record. It is not the complete legal health record.[facility]
== END 2024-12-13 13:59 | disposition home or self-care (01) ==
LOC: HO.LNP 13:58
PROVIDERS: Visit Provider Physician Assistant
DX: R31.0 Gross hematuria (principal)
CPT/HCPCS: 81001

== ENCOUNTER 2025-01-12 14:40 | Outpatient (REF) | payer MEDICARE, SELFPAY ==
--- NOTE | ~2025-01-12 | CT_ITS ---
EXAMINATION: CT ABDOMEN AND PELVIS WITHOUT CONTRAST CLINICAL INFORMATION: Kidney stone COMPARISON: None available. TECHNIQUE: Multidetector volumetric imaging was performed from the superior aspect of the liver through the pubic symphysis. Sagittal and coronal reformatted images were obtained on the technologist's workstation. This CT examination was performed using dose optimization techniques as appropriate, variously including the following: *Automated exposure control *Adjustment of mA and/or kV according to patient size (this includes techniques or standardized protocols for targeted exams where dose is matched to indication/reason for exam; i.e. extremities or head) *Use of iterative reconstruction technique FINDINGS: LUNG BASES: The visualized lung bases are unremarkable. LIVER, GALLBLADDER, AND BILIARY TREE: The liver is normal in size, shape, and attenuation. No focal hepatic lesion or biliary ductal dilatation is present. The gallbladder is not visualized and likely surgically absent. PANCREAS: Unremarkable. SPLEEN: Unremarkable. ADRENAL GLANDS: Unremarkable. KIDNEYS AND URETERS: There is a 7 x 12 mm stone in the mid right kidney. There are no other stones. There is mild perinephric edema bilaterally. BLADDER: Unremarkable. GASTROINTESTINAL TRACT: Surgical changes are noted with multiple clips around the lesser curvature of the stomach. Appendix is nonvisualized. Gastrointestinal tract is otherwise unremarkable. ABDOMINAL WALL: Bilateral inguinal hernias are present, larger on the right. LYMPH NODES: Normal. VASCULAR: Multifocal vascular calcification is are present. PELVIC VISCERA: Unremarkable. OSSEOUS STRUCTURES: Multilevel degenerative changes are evident in the thoracal lumbar spine with disc space narrowing, endplate irregularity, vacuum phenomena, facet osteophytes and sclerosis, and grade 1 [address] at L4-5. CT/CT abdomen pelvis wo IV con IMPRESSION: There is a nonobstructing 7 x 12 mm stone in the mid right kidney. Moderate multilevel degenerative changes are evident in the imaged portions of the spine. There are bilateral fat-containing inguinal hernias, larger on the right. Fleischner guidelines were followed. Electronically signed by: Ramiro Abreu MD 01/12/2025 03:09 PM EDT
--- OUTSIDE RECORDS SUMMARY | 2025-01-12 18:29 | XMS_ITS | Encounter Summary ---
Author Organization [facility] Address [address] [place] [address] Phone Care Team Providers Care Endless Belt Finisher Name Role Phone Timothy Cloud MD Primary Care Provider [phone] Malina Lopez MD Unavailable [phone] Arturo Torres MD Unavailable [phone] Edmund Chairez MD Unavailable [phone] Marilu Moreno MD Unavailable [phone] César Stein MD Primary Care Provider [phone] Primo Cisneros DO Primary Care Provider [phone] Encounter Details Date Type Department Care Team (Late Contact Info) Description 09/05/2020 Procedure Pass [facility] Endoscopy Admitting Dept Virtual Department [address] [place] [address] Social History Tobacco Use Types Packs/Day Years [...] Department Care Team (Late Contact Info) Description 02/14/2025 2:00 PM EST Office Visit [facility] [address]N [address] [place] [address] Arturo Torres MD [address] [place] [address] 11[address] [place] [address] [email or web address] 10/12/2026 11:20 AM EDT Office Visit [facility] Urology [address] [facility] [place] [address] Arturo Torres MD [address] [place] [address] 11-3 [place] [address] [email or web address] documented as of this encounter Visit Diagnoses Not on filedocumented in this encounter Additional Health Concerns Assessment Noted Time PHQ-2 Depression Total Score: 0 04/28/19 20 11:14 AM EST documented as of this encounter Care Teams Endless Belt Finisher Relationship Specialty Start Date End Date Timothy Cloud MD [address] [place] [address] [email or web address] PCP - General Internal Medicine 03/25/1703/14 César Stein MD [address] [place] [phone] PCP - General 07/24/22 10/03/24 Primo Cisneros DO [address] [facility] [place] [address] [email or web address] PCP - General Internal Medicine 10/04/24 Malina Lopez MD [address] [place] [address] [email or web address] Cardiology 05/22/20 Arturo Torres MD [address] [place] [address] 11[address] [place] [address] [email or web address] Urology 05/22/20 Edmund Chairez MD [address] [place] [address], [facility] [address] [place] [address] [email or web address] Pulmonary Disease 05/22/20 Marilu Moreno MD [address] [place] [address] [address] [place] [address] [email or web address] Endocrinology 05/22/20 documented as of this encounter Additional Source Comments The information contained in this document represents components of the legal health record. It is not the complete legal health record.[facility]
--- OUTSIDE RECORDS SUMMARY | 2025-01-12 18:29 | XMS_ITS | Encounter Summary ---
Author Organization [facility] Address [address] [place] [address] Phone Care Team Providers Care Residential Building Inspector Name Role Phone Timothy Cloud MD Primary Care Provider [phone] Malina Lopez MD Unavailable [phone] Arturo Torres MD Unavailable [phone] Edmund Chairez MD Unavailable Marilu Moreno MD Unavailable [phone] César Stein MD Primary Care Provider [phone] Primo Cisneros DO Primary Care Provider [phone] Reason for Referral * MRI/CAT Scan - Closed Specialty Diagnoses / Procedures Referred By Contac t Referred To Contact Radiology Diagnoses Type 2 diabetes mellitus with diabetic neuropathy, without long-term current use of insulin Essential hypertension Abnormal EKG Procedures NC Myocardial Perfusion Stress Single NC Myocardial Perfusion Exercise Multiple Timothy Cloud MD Phone: tel: fax: mailto:[email or web address] Referral ID Status Reason Start Date Expiration Date Visits Re quested Visits Authorized [id number] Closed 11/17/2017 11/17/2018 1 1 Encounter Details Date Type Department Care Team (Late st Contact Info) Description 12/07/2017 Ancillary Orders [facility] Internal Medicine [address] [place] [address] Timothy Cloud MD 90 [facility] 101 [place] [address] [email or web address] Type 2 diabetes mellitus with diabetic [...] Care Team (Late st Contact Info) Description 02/14/2025 2:00 PM EST Office Visit [facility] Urology 4[facility] [address], [place] [address] Arturo Torres MD [address] [place], [place] [address] [place] [address] [email or web address] 10/12/2026 11:20 AM EDT Office Visit [facility] Urology [address] [place], [place] [address]2362-3 [place] [address] Arturo Torres MD [address] [place] [address] 113 [place] [address] [email or web address] documented as of this encounter Results [...] 0.00% The left ventricular perfusion is normal. us Timothy Cloud MD CV NM CARDIAC Final [...] (EKG) documented in this encounter Care Teams Residential Building Inspector Relationship Specialty Start Date End Date Timothy Cloud MD [address] [address] [email or web address] PCP - General Internal Medicine 03/25/1703/14 César Stein MD [address] [place] [phone] PCP - General 07/24/22 10/03/24 Primo Cisneros DO 179 [facility] [place] [address] [email or web address] PCP - General Internal Medicine 10/04/24 Malina Lopez MD [address] [address] [email or web address] Cardiology 05/22/20 Arturo Torres MD [address] [place] [address] 11-3 [place] [address] [email or web address] Urology 05/22/20 Edmund Chairez MD 22 [facility] [address] [place] [address] Pulmonary Disease 05/22/20 Marilu Moreno MD [address] [place] [address] [email or web address] Endocrinology 05/22/20 documented as of this encounter Additional Source Comments The information contained in this document represents components of the legal health record. It is not the complete legal health record.[facility]
--- OUTSIDE RECORDS SUMMARY | 2025-01-12 18:30 | XMS_ITS | Clinical Summary ---
Author Organization [facility] Address [address] [place] [address] Phone Care Team Providers Care Scanning Tech Name Role Phone Malina Lopez MD Unavailable [phone] Arturo Torres MD Unavailable [phone] Edmund Chairez MD Unavailable [phone] Marilu Moreno MD Unavailable [phone] Primo Cisneros DO Primary Care Provider [phone] Allergies Active Allergy Reactions Criticality Noted Date Comments Doxazosin GI Upset 04/07/2017 Abdominal cramping Sulfa (Sulfonamide Antibiotics) Hives High 03/23 Tamsulosin GI Upset 04/07/2017 Abdominal cramping Medications cholecalciferol (VITAMIN D3) 1,000 unit tablet Take 1,000 Units by mouth daily. Active insulin glargine (LANTUS, BASAGLAR) 100 unit/mL (3 mL) InPn injection pen 28 Units nightly at bedtime. Active metFORMIN (GLUCOPHAGE-XR) 500 MG 24 hr tablet Take 2 tablets (1,000 mg total) by mouth 2 (two) times a day. 360 tablet 3 8 Active cyanocobalamin, vitamin B-12, 100 MCG tablet Take 100 mcg by mouth daily. Active metoprolol tartrate (LOPRESSOR) 50 MG tablet Take 100 mg by mouth 2 (two) times a day. Active aspirin 81 MG EC tablet Take 81 mg by mouth daily. Active albuterol 90 mcg/actuation inhaler Inhale 2 puffs into the lungs every 4 (four) hours as needed for wheezing or shortness of breath/dyspnea . 1 Inhaler 11 0 Active famotidine (PEPCID) 20 MG tablet TAKE 1 TABLET BY MOUTH TWICE A DAY 180 tablet 3 0 Active fexofenadine (BRIE) 180 MG tablet Take 1 tablet (180 mg total) by mouth daily as needed. 1 Active montelukast (SINGULAIR) 10 mg tablet Take 1 tablet (10 mg total) by mouth daily. 90 tablet 3 1 Active ferrous sulfate (IRON ORAL) Take 1 tablet by mouth daily. Active ascorbic acid (VITAMIN C ORAL) Take 1 tablet by mouth daily. Take with iron Active citalopram (CELEXA) 20 MG tablet Take 1 tablet (20 mg total) by mouth daily. 90 tablet 3 1 Active colchicine (COLCRYS) 0.6 mg tablet Take 1 tablet (0.6 mg total) by mouth 2 (two) times a day as needed. 60 tablet 2 1 Active amLODIPine (NORVASC) 10 MG tablet Take 1 tablet (10 mg total) by mouth daily. 90 tablet 3 1 Active empagliflozin (JARDIANCE ORAL) Take 12 mg by mouth daily. Active melatonin 5 mg Tab Take 15 mg by mouth nightly at bedtime. Active vitamins A,C,R-nqow-rzhvca (PRESERVISION AREDS) 14,320-226-200 vcta-ib-zxbc Cap Take 1 capsule by mouth 2 (two) times a day with meals. Active losartan (COZAAR) 50 MG tablet TAKE 1 TABLET BY MOUTH EVERY DAY 90 tablet 3 2 Active gabapentin (NEURONTIN) 600 MG tablet Take 1 tablet (600 mg total) by mouth nightly at bedtime. 90 tablet 3 2 Active finasteride (PROSCAR) 5 mg tablet TAKE 1 TABLET (5 MG TOTAL) BY MOUTH DAILY. 90 tablet 1 2 Active atorvastatin (LIPITOR) 40 MG tablet TAKE 1 TABLET BY MOUTH EVERY DAY 90 tablet 2 Active oxyBUTYnin (DITROPAN-XL) 5 MG 24 hr tablet TAKE 1 TABLET BY MOUTH EVERY DAY 90 tablet 1 3 Active valACYclovir (VALTREX) 500 MG tablet Take 500 mg by mouth as needed. for 7 days Active semaglutide (OZEMPIC) 2 mg/dose (8 mg/3 mL) subcutaneous injection pen Inject under the skin. 5 Active fluticasone propion-salmetero L (ADVAIR DISKUS) 250-50 mcg/dose DISKUS Inhale into the lungs as needed. 5 Active cholestyramine 4 gram Powd Take 4 g by mouth. 0 Active ibuprofen (ADVIL,MOTRIN) 800 MG tablet as needed. Activ e Active Problems Problem Noted Date Diagnosed Date Benign prostatic hyperplasia with urinary obstru ction 06/04/2021 Overview (06/04/2021): followed by Dr. Torres Iron deficiency anemia 11/22/2020 Chronic obstructive pulmonary disease 03/02/2020 Reactive airway disease without complication 01/2020 Postoperative acute deep vein thrombosis of lowe r extremity 02/06/2020 Circadian rhythm sleep disorder, delayed sleep p hase type 10/05/2019 Restless legs 10/05/2019 Gastroesophageal reflux disease 04/28/2019 Adenomatous polyp of colon 04/28/2019 Overview (04/28/2019): colonoscopy 09/19/09 was negative; sessile 9 mm non-bleeding benign appearing cecal polyp on colonoscopy 01/23/17, completely removed with hot snare but not recovered Essential hypertension 04/26/2019 Equinus deformity of both feet 02/01/2019 Flat foot 02/01/2019 Pain in left foot 02/01/2019 Pain in right foot 02/01/2019 Insomnia 11/26/2018 Vitamin B12 deficiency 02/18/2018 Overview (02/18/2018): possibly due to metformin Type 2 diabetes mellitus wit h diabetic neuropathy, with long-term current use of insulin 04/07/2017 Gout 04/07/2017 Anxiety 04/07/2017 Other hyperlipidemia 04/07/2017 Hypertension 06/27/2016 Increased frequency of urination 07/15/2012 Overview (05/13/2014): Urinary frequency DDD (degenerative disc disease), cervical Elevated PSA Overview (01/03/2018): Negative prostate biopsy 05/[address] Al. Currently followed by Dr. Arturo Torres in [place]. ED Aortic regurgitation Overview (05/20/2019): mild on echo 05/18/19 Resolved Problems Problem Noted Date Diagnosed Date Resolved Date Type 2 diabetes mellitus wit h diabetic neuropathy, without long-term current use of insulin 10/13/2019 03/02/2020 Encounters Date Type Department Care Team Description 12/21/2024 Telephone [facility] Urology [address] [place] [address] Sarbjit Rahman 12/21/2024 Orders Only [facility] Urology [address] [place] [address] Sarbjit Rahman Kidney stone (Primary Dx) 12/21/2024 Documentation [facility] Urology [address] [place] [address] Arturo Torres MD 12/09/2024 Transcribe Orders [facility] [address], [address] [place] [address] Primo Cisneros DO Hyperlipidemia, unspecified hyperlipidemia type (Primary Dx) 10/14/2024 11:30 AM EDT - 10/14/2024 11:59 PM EDT Hospital Encounter [facility] Phlebotomy [address] [place] [address] [place] [address] Arturo Torres MD Discharge Disposition: Home or Self Care 10/14/2024 11:00 AM EDT Office Visit [facility] Urology [address] [place] [address] Arturo Torres MD Benign prostatic hyperplasia with post-void dribbling (Primary Dx) from Last 3 Months Immunizations Immunization Administration Dates Next Due COVID-19 (Pre-01/12) Moderna Vaccine, mRNA, PF 06/11/2020,05/14/2020 INFLUENZA, SPLIT VIRUS, TRIV ALENT W/ PRESERVATIVE IM 12/21/2017,01/27/2017 Influenza High-Dose Trivalen t Preservative Free IM 02/25/2019,01/09/2017,02/12/2016 Influenza Quadrivalent Adjuv anted Preservative Free IM 03/05/2021 Influenza Quadrivalent Preservative Free IM 04/24 Influenza, Unspecified Formulation 12/22/2019,,12/14/2012 Pneumococcal conjugate PCV13 01/13/2017 Pneumococcal polysaccharide PPSV23 06/03/2012 Pneumococcal, Unspecified Formulation 08/22/2011 Td, unspecified formulation 03/23/2007 Tdap 09/12/2020,07/18/2013 Zoster live 06/03/2011,03/23/2011 Zoster recombinant 07/05/2018,07/06/2017 Family History Medical History Relation Comments Fibromyalgia Brother Hyperlipidemia Brother Alcohol abuse Father Cirrhosis Father smoker Lung disease Father Hyperlipidemia Mother Hypertension Mother SUMMER disease Sister Asthma Son Diverticulosis Son Lung disease Son Relation Status Comments Brother Father (Age 52) of cirrho sis Mother (Age 99) Sister Son Social History Tobacco Use Types Packs/Day Years Used Date Smoking Tobacco: Former Cigarettes Q uit: 1989 Smokeless Tobacco: Never Tobacco Cessation:Counseling Given: Not Answered Comments:approx 30 pack years Alcohol Use Standard Drinks/Week Comments No 0 [...] PM EST Sexual Orientation Not on file Last Filed Vital Signs Vital Sign Reading Time Taken Comments Blood Pressure 120/76 07/01/2021 12:00 PM EDT Pulse 63 07/01/2021 12:00 PM EDT Temperature 36.3 C (97.3 F) 09/05/2020 11:00 AM EDT Respiratory Rate 18 09/05/2020 1:55 PM EDT Oxygen Saturation 95% 07/01/2021 12:00 PM EDT Inhaled Oxygen Concentration - - Weight 90.3 kg (199 lb) 10/14/2024 10:42 AM EDT Height 175.3 cm (5' 9 ) 10/14/2024 10:42 AM EDT Body Mass Index 29.39 10/14/2024 10:42 AM EDT Plan of Treatment Upcoming Encounters Date Type Department Care Team (Late st Contact Info) Description 02/14/2025 2:00 PM EST Office Visit [facility] Urology [address] [facility] [address] [place] [address] Arturo Torres MD [address] [place], [place] [address] [place] [address] [email or web address] 10/12/2026 11:20 AM EDT Office Visit [facility] Urology [address] [place], [place] [address] [place] [address] Arturo Torres MD [address] [place] [address] [address] [place] [address] [email or web address] Health Maintenance Due Date Last Done Comments COLOGUARD 1990 FIT TEST 1990 FOBT 1990 SIGMOIDOSCOPY 1990 VIRTUAL COLONOSCOPY 1990 RSV VACCINE (1 - 1-dose 75+ series) 2020 DEPRESSION SCREENING 06/04/2022 06/04/2021 HEMOGLOBIN A1C 01/24/2023 07/24/2022, 01/22, 03/21/2021, Additional history exists CREATININE LEVEL 07/25/2023 07/24/2022, , 07/01/2021, Additional history exists POTASSIUM LEVEL 07/25/2023 07/24/2022, 01/22, 07/01/2021, Additional history exists DIABETIC EYE EXAM 09/16/2024 09/17/2023, , 01/30/2021, Additional history exists INFLUENZA VACCINE (#1) 2024 , 03/26/2022, 03/05/2021, Additional history exists COVID-19 VACCINE ( season) 2024 03/05/2021, 06/11/2020, 05/14/2020 BLOOD PRESSURE 04/16/2025 10/14/2024 COLONOSCOPY 09/05/2025 09/05/2020, 08/21, 02/02/2017, Additional history exists COLORECTAL CANCER SCREENING 09/05/2025 SMOKING Hx and SMOKELESS TOBACCO SCREENING 10/14/2025 10/14/2024 Adult Td,Tdap Booster 09/12/2030 09/12/2020 , 07/18/2013, 03/23/2007 ZOSTER VACCINES Completed 07/05/2018, 06/21, 06/03/2011, Additional history exists HEPATITIS C SCREENING Completed 04/28/2019 PNEUMOCOCCAL VACCINES (50+ years) Completed 09/26/2021, 01/13/2017, 06/03/2012 HEPATITIS A VACCINES Aged Out No long er eligible based on patient's age to complete this topic HIB VACCINES Aged Out No longer eligi ble based on patient's age to complete this topic MENINGOCOCCAL VACCINES (ACWY) Aged Out No longer eligible based on patient's age to complete this topic MENINGOCOCCAL VACCINES (B) Aged Out N o longer eligible based on patient's age to complete this topic Medical Devices Not on file Procedures Procedure Name Priority Date/Time Associated Diagnosis Comments PSA DIAGNOSTIC (MONITORING) Routine 10/14/2024 11:35 AM EDT Benign prostatic hyperplasia with post-void dribbling HEMOGLOBIN A1C Routine 07/24/2022 11:09 AM EDT Heart failure, unspecified HF chronicity, unspecified heart failure type Diabetes mellitus of other type without complication, unspecified whether fci insulin use Vitamin D deficiency, unspecified COMPREHENSIVE METABOLIC PANEL Routine 07/24/2022 11:09 AM EDT Heart failure, unspecified HF chronicity, unspecified heart failure type Diabetes mellitus of other type without complication, unspecified whether fci insulin use Vitamin D deficiency, unspecified HM DIABETES EYE EXAM FOR RESULT ENTRY ONLY Routine 01/30/2021 ENDOSCOPY, COLON 09/05/2020 1:06 PM EDT HEPATITIS C ANTIBODY, QUALITATIVE Routine 04/28/2019 12:19 PM EST Routine general medical examination at a health care facility from Last 3 Months or Most Recently Relevant to Health Maintenance Results * PSA diagnostic (monitoring) (10/14/2024 11:35 AM EDT) PSA Monitoring 2.26 0.00 - 4.00 ng/mL [facility] Comment: 10/14/2024 11:3 5 AM EDT 10/14/2024 12:11 PM EDT us Arturo Torres MD LAB BLOOD ORDERABLES Final Re sult Performing Organization Address City/State/[facility] Co de Phone Number [facility] [address] [place] [address] * (ABNORMAL) Comprehensive metabolic panel (07/24/2022 11:09 AM EDT) SODIUM 143 133 - 146 mmol/L [facility] POTASSIUM 5.1 3.3 - 5.1 mmol/L [facility] CHLORIDE 105 96 - 108 mmol/L [facility] CO2 30 21 - 35 mmol/L [facility] BUN 17 6 - 19 mg/dL [facility] CREATININE 0.90 0.5 - 1.5 mg/dL [facility] GLUCOSE 104(H) 70 - 99 mg/dL [facility] ALBUMIN 3.8(L) 3.9 - 4.8 g/dL [facility] TOTAL PROTEIN 6.2(L) 6.5 - 8.0 g/dL [facility] CALCIUM 9.2 8.4 - 10.3 mg/dL [facility] ALKALINE PHOSPHATASE 72 39 - 117 U/L [facility] TOTAL BILIRUBIN 0.4 0.0 - 1.2 mg/dL [facility] AST 31 0 - 37 U/L [facility] ALT 23 0 - 40 U/L [facility] GLOBULIN 2.4 1 - 4.8 g/dL [facility] EGFR 88 >59 mL/min/1.7 3m2 [facility] Comment:Estimated glomerular filtration rate calculated using the CKD-EPI refit equation. ANION GAP 13 10 - 20 mmol/L [facility] Blood 07/24/2022 11:0 9 AM EDT 07/24/2022 11:17 AM EDT us Primo A Bigda DO LAB BLOOD ORDERABLES Final Resul t [address] [address] * Hemoglobin A1c (07/24/2022 11:09 AM EDT) HEMOGLOBIN A1C 5.7 4.3 - 5.8 % [facility] Blood 07/24/2022 11:0 9 AM EDT 07/24/2022 11:17 AM EDT us Primo A Bigda DO LAB BLOOD ORDERABLES Final Resul t Performing Organization Address City/[facility]/ZIP Co de Phone Number [address] [address] * DIABETES EYE EXAM FOR RESULT ENTRY ONLY (01/30/2021) HM EYE EXAM no retinopathy us Historical Provider HEALTH MAINTENANCE Final Result * ENDOSCOPY, COLON (09/05/2020 1:06 PM EDT) Narrative Transcriptions Brendan Jarrett MD - 09/05/2020 1:06 PM EDT Patient Name: Jackson Fletcher Attending MD:: BRENDAN JARRETT MD Procedure Date: 09/05/2020 1:06 PM Date of : 1945 Age: 75 Admit Type: Outpatient Gender: Male Room: [place] [address] Referring MD: BRENDAN LIMA MD Exam Type: Colonoscopy Indications: Last colonoscopy: January 2017, Unexplained iron deficiency anemia, Personal history of colonicpolyps Medications: Monitored Anesthesia Care Procedure: Informed consent was obtained from the patient after discussion of the indications, limitations, alternatives, benefits, and risks of the procedure. Risks specifically discussed include but are not limited to medication reactions, missed lesions, bleeding, perforation, or the need for emergentsurgery. Throughout the procedure, the patient's bloodpressure, pulse, end-tidal CO2, and oxygen saturations were monitored continuously. The Olympus adult variable colonoscope [id number] #7was introduced through the anus and advanced to thececum, identified by the appendiceal orifice, ileocecalvalve and palpation. The colonoscopy was performed without difficulty. Complications: No immediate complications. Estimated blood loss:None. Findings: The perianal and digital rectal examinations were normal. Pertinent negatives include normal sphincter tone. Retroflexion in the right colon was performed. The entire examined colon appeared normal on directand retroflexion views. Impression: - The entire examined colon is normal on direct and retroflexion views. - No specimens collected. Recommendation: - Repeat colonoscopy in 5 years for surveillance. BRENDAN JARRETT MD 09/05/2020 1:49:31 PM This report has been signed electronically. Number of Addenda: 0 Note Initiated On: 09/05/2020 1:06 PM Procedure Code(s): --- Professional --- 99102, Colonoscopy, flexible; diagnostic, including collection of specimen(s) by brushing or washing, when performed (separateprocedure) --- Technical --- 51611, Colonoscopy, flexible; diagnostic, including collection of specimen(s) by brushing or washing, when performed (separateprocedure) Diagnosis Code(s): --- Professional --- D50.9, Iron deficiency anemia, unspecified Z86.010, Personal history of colonic polyps --- Technical --- D50.9, Iron deficiency anemia, unspecified Z86.010, Personal history of colonic polyps CPT copyright 2018 [employer]. All rights reserved. The codes documented in this report are preliminary and upon payroll supervisor reviewmay be revised to meet current compliance requirements. Procedure Date: 09/05/2020 1:06:[address] [place] [address] Brendan Lima MD GI PROCEDURE ORDERABLES Fi nal Result * Hepatitis C antibody, qualitative (04/28/2019 12:19 PM EST) HCV NON-REACTI VE NON-REACTI VE [facility] Comment: This is a screening test and should be confirmed with molecular testing Blood 04/28/2019 12:1 9 PM EST 04/28/2019 12:21 PM EST Brendan Lima MD LAB BLOOD ORDERABLES Final Result [address] [address] from Last 3 Months or Most Recently Relevant to Health Maintenance Insurance [employer]ED [employer] REPLACEMENT [facility] MEDICARE PART A & B [employer] PREF[employer] REPLACEMENT [facility] MEDICARE PART A & B [employer]REF[employer] REPLACEMENT [facility] MEDICARE PART A & B [employer]REF[employer] REPLACEMENT [facility] MEDICARE PART A & B [employer] MED[employer]ARE PREFERRED HMO REPLACEMENT [facility] MEDICARE PART A & B Member Subscriber Plan / Payer (Ef fective 2011-Present) Name:Jackson Fletcher Member ID:[id number] Relation to Subscriber:Self Name:Jackson Fletcher Subscriber ID:[id number] Payer ID:[id number] Group ID:Not on file Type:Medicare Address: [facility] Wardrobe Housekeeper [facility]OREXceedium [facility] [address] [place] [phone] [facility] MEDICARE PREFERRED HMO REPLACEMENT [facility] MEDICARE PART A & B [employer] PREF[employer]ED HMO REPLACEMENT [facility] MEDICARE PART A & B [employer] PREFERRED HMO REPLACEMENT [facility] MEDICARE PART A & B [employer] PREF[employer]ED HMO REPLACEMENT [facility] MEDICARE PART A & B Care Teams Scanning Tech Relationship Specialty Start Date End Date Primo Cisneros DO [address] [place] [address] PCP - General Internal Medicine 10/04/24 Malina Lopez MD [address] [place] [address] [email or web address] Cardiology 05/22/20 Arturo Torres MD [address] [place] [address] [address] [place] [address] [email or web address] Urology 05/22/20 Edmund Chairez MD [address] [place] [address], [facility] [address] [place] [address] [email or web address] Pulmonary Disease 05/22/20 Marilu Moreno MD [address] [place] [address] [address] [place] [address] [email or web address] Endocrinology 05/22/20 Additional Source Comments The information contained in this document represents components of the legal health record. It is not the complete legal health record.[facility]
--- OUTSIDE RECORDS SUMMARY | 2025-01-12 18:30 | XMS_ITS | Clinical Summary ---
Author Organization [facility] Facility Address [address] [address] Care Team Providers Care Project Manager Entertainment [employer] Media Name Role Phone Kraig Willingham MD Primary Care Provider [phone] Medications albuterol HFA (PROVENTIL HFA;VENTOLIN HFA) 108 [...] this topic Insurance [employer] Care Teams Project Manager Entertainment And Media Relationship Specialty Start Date End Date Kraig Willingham MD [address] [place] [address] PCP - General Internal Medicine 02/02/20
--- OUTSIDE RECORDS SUMMARY | 2025-01-12 18:30 | XMS_ITS | Encounter Summary ---
Author Organization [facility] Address [address] [place] [address] Phone Care Team Providers Care Nail Specialist Name Role Phone Malina Lopez MD Unavailable [phone] Arturo Torres MD Unavailable [phone] Edmund Chairez MD Unavailable [phone] Marilu Moreno MD Unavailable [phone] César Stein MD Primary Care Provider [phone] Primo Cisneros DO Primary Care Provider [phone] Reason for Visit * Reason Comments Medication Refill Encounter Details Date Type Department Care Team ([facility] st Contact Info) Description 08/04/2022 Refill [facility] Internal Medicine [address] [place] [address] Timothy Cloud MD [address] [place] [address] [email or web address] Medication Refill Social History Tobacco Use [...] Description 02/14/2025 2:00 PM EST Office Visit [facility] Urology [address] [facility] [address] [place] [address] Arturo Torres MD [address] [place] [address] [address] [place] [address] [email or web address] 10/12/2026 11:20 AM EDT Office Visit [facility] Urology [address] [place], [place] [address] [place] [address] Arturo Torres MD [address] [place] [address] [address] [place] [address] [email or web address] documented as of this encounter Visit Diagnoses Not on filedocumented in this encounter Additional Health Concerns Assessment Noted Time PHQ-2 Depression Total Score: 0 06/05/19 22 1:13 PM EDT documented as of this encounter Care Teams Nail Specialist Relationship Specialty Start Date End Date César Stein MD [address] [place] [id number] PCP - General 07/24/22 10/03/24 Primo Cisneros DO [address] [facility] [place] [address] PCP - General Internal Medicine 10/04/24 Malina Lopez MD [address] [place], [place] [id number] [email or web address] Cardiology 05/22/20 Arturo Torres MD [address] [place] [address] [address] [place] [address] [email or web address] Urology 05/22/20 Edmund Chairez MD [address] [place] [address], [address] [place] [address] Pulmonary Disease 05/22/20 Marilu Moreno MD [address] [place] [address] [address] [place] [address] Endocrinology 05/22/20 documented as of this encounter Additional Source Comments The information contained in this document represents components of the legal health record. It is not the complete legal health record.[facility]
== END 2025-01-12 14:41 | disposition home or self-care (01) ==
LOC: HO.CT 14:40
PROVIDERS: PCP Internal Medicine; Visit Provider Urology
DX: N20.0 Calculus of kidney (principal)
CPT/HCPCS: 74176

== ENCOUNTER → 2025-01-12 14:46 | Outpatient (BNV) | payer MEDICARE, SELFPAY | PROVIDERS: PCP Internal Medicine; Visit Provider Radiology Diagnostic Radiology | DX: N20.0 Calculus of kidney (principal); K44.9 Diaphragmatic hernia without obstruction or gangrene | CPT/HCPCS: 74176 ==